=== PATIENT | male | born 1975 | race Caucasian/White ===

== ENCOUNTER 2020-06-07 10:32 | Outpatient (REF) | payer OTHER, SELFPAY | END 2020-06-07 10:33 | disposition home or self-care (01) | LOC: HO.LAB 10:32 | PROVIDERS: Visit Provider Hospitalist | DX: Z13.89 Encounter for screening for other disorder (principal) ==

== ENCOUNTER 2020-06-13 16:13 | Outpatient (REF) | payer SELFPAY ==
[2020-06-13 16:50] LABS: Cholesterol 181 mg/dL
[2020-06-13 17:11] LABS: SARS COV2 IgG Negative (Negative)
== END 2020-06-13 16:14 | disposition home or self-care (01) ==
LOC: HO.LNC 16:13
PROVIDERS: Visit Provider Pathology Anatomic Pathology & Clinical Pathology
DX: Z20.828 Contact with and (suspected) exposure to other viral communicable diseases (principal); E78.00 Pure hypercholesterolemia, unspecified
CPT/HCPCS: 82465; 86769

== ENCOUNTER 2020-06-18 15:15 | Outpatient (REF) | payer OTHER, SELFPAY ==
[2020-06-18 15:54] LABS: MANUAL DIFF FLAG NO
[2020-06-18 15:57] LABS: Basophils Percent Auto 0.4 % (0-2); Eosinophils Absolute Auto 0.1 X10*3/uL (0.0-0.4); Eosinophils Percent Auto 0.9 % (0-4); Hematocrit 41.2 % (42-52); Hemoglobin 13.8 g/dl (14.0-18.0); Imm Gran Abs Auto 0.07 X10*3/uL (0.00-0.03); Imm Gran Pct Auto 0.8 % (0.0-0.4); Lymphocytes Percent Auto 23.3 % (20-40); Mean Corpuscular HGB Conc 33.5 g/dl (31.0-36.0); Mean Corpuscular Hemoglobin 28.4 pg (27.0-33.0); Mean Corpuscular Volume 84.8 fL (80-98); Mean Platelet Volume 9.5 fL (9.4-12.4); Monocytes Absolute Auto 0.9 X10*3/uL (0.1-1.2); Monocytes Percent Auto 10.9 % (2-11); Neutrophils Absolute Auto 5.4 X10*3/uL (2.0-8.3); Neutrophils Percent Auto 63.7 % (45-73); Platelet Count 263 X10*3/uL (160-400); Red Blood Count 4.86 X10*6/uL (4.60-5.80); Red Cell Distribution Width 13.7 % (11.0-16.0); White Blood Count 8.5 X10*3/uL (4.8-10.8)
[2020-06-18 16:22] LABS: Alanine Aminotransferase 37 U/L (0-40); Albumin Level 4.8 g/dL (3.5-5.0); Alkaline Phosphatase 47 U/L (39-117); Anion Gap 14 (12-20); Aspartate Amino Transferase 43 U/L (5-37); Bilirubin Total 0.4 mg/dL (0.0-1.0); Blood Urea Nitrogen 12 mg/dL (9-16); Carbon Dioxide 27 mmol/L (22-29); Chloride 100 mmol/L (96-108); Cholesterol 201 mg/dL; Estimated Glomerular Filt Rate > 60; Glucose Fasting 90 mg/dL (60-99); HDL Cholesterol 42 mg/dL; LDL Cholesterol Calculated 127 mg/dl; Potassium 4.1 mmol/l (3.3-5.1); Rheumatoid Factor < 15.0 IU/mL (<15.0); Sodium 137 mmol/L (135-145); Total Protein 7.4 g/dL (6.5-8.0); Triglycerides 161 mg/dL
[2020-06-18 16:43] LABS: TSH reflex Free T4 1.85 mIU/mL (0.32-4.0)
[2020-06-18 16:49] LABS: Erythrocyte Sedimentation Rate 2 MM/HR (0-15)
[2020-06-20 12:03] LABS: Cyclic Citrullinated Peptide <16 UNITS
[2020-06-20 14:28] LABS: Anti Nuclear Antibody Screen NEGATIVE (NEGATIVE)
== END 2020-06-18 15:16 | disposition home or self-care (01) ==
LOC: HO.LAB 15:15
PROVIDERS: PCP Physician Assistant; Visit Provider Physician Assistant
DX: M25.50 Pain in unspecified joint (principal); I10 Essential (primary) hypertension
CPT/HCPCS: 36415; 80053; 80061; 84443; 85025; 85652; 86038; 86039; 86200; 86431

== ENCOUNTER → 2020-08-14 15:48 | Outpatient (BNVA) | payer OTHER, SELFPAY | PROVIDERS: PCP Physician Assistant; Visit Provider Student in an Organized Health Care Education/Training Program ==

== ENCOUNTER 2020-08-22 15:29 | Outpatient (REF) | payer OTHER, SELFPAY ==
[2020-08-22 15:57] LABS: Hematocrit 41.9 % (42-52); Hemoglobin 13.4 g/dl (14.0-18.0)
[2020-08-22 16:20] LABS: Cholesterol 188 mg/dL; HDL Cholesterol 38 mg/dL; LDL Cholesterol Calculated 121 mg/dl; Triglycerides 147 mg/dL
[2020-08-22 16:41] LABS: Prostate Specific Antigen 1.01 ng/mL (<0.05-4.0)
[2020-08-23 12:32] LABS: Sex Hormone Binding Globulin 19 nmol/L (10-50)
[2020-08-28 04:07] LABS: Testosterone-Albumin 4.6 g/dL (3.6-5.1); Testosterone-Free 128.1 pg/mL (46.0-224.0); Testosterone-SHBG 19 nmol/L (10-50); Testosterone-Total 606 ng/dL (250-1100)
[2020-08-28 08:47] LABS: Testosterone, Free 110.7 pg/mL (35.0-155.0); Testosterone, Total 562 ng/dL (250-1100)
[2020-08-28 23:02] LABS: Estrogen 262.2 pg/mL (60-190)
== END 2020-08-22 15:30 | disposition home or self-care (01) ==
LOC: HO.LAB 15:29
PROVIDERS: PCP Physician Assistant; Visit Provider Internal Medicine Endocrinology, Diabetes & Metabolism
DX: E29.1 Testicular hypofunction (principal); Z12.5 Encounter for screening for malignant neoplasm of prostate
CPT/HCPCS: 36415; 80061; 82672; 84153; 84270; 84402; 84403; 85014; 85018

== ENCOUNTER 2020-08-26 10:00 | Outpatient (REF) | payer OTHER, SELFPAY ==
[2020-08-26 10:15] LABS: Hematocrit 43.6 % (42-52); Mean Corpuscular HGB Conc 32.1 g/dl (31.0-36.0); Mean Corpuscular Hemoglobin 27.4 pg (27.0-33.0); Mean Corpuscular Volume 85.3 fL (80-98); Mean Platelet Volume 8.9 fL (9.4-12.4); Platelet Count 251 X10*3/uL (160-400); Red Blood Count 5.11 X10*6/uL (4.60-5.80); Red Cell Distribution Width 13.7 % (11.0-16.0); White Blood Count 6.6 X10*3/uL (4.8-10.8)
[2020-08-26 10:40] LABS: Cholesterol 200 mg/dL; HDL Cholesterol 38 mg/dL; LDL Cholesterol Calculated 130 mg/dl; Triglycerides 160 mg/dL
[2020-08-26 11:02] LABS: Vitamin D 25-OH Total 26.2 ng/mL (>30)
[2020-08-26 11:13] LABS: Folate 18.5 ng/mL (> or = 4.0); Vitamin B12 682 pg/mL (200-900)
== END 2020-08-26 10:01 | disposition home or self-care (01) ==
LOC: HO.LAB 10:00
PROVIDERS: PCP Physician Assistant; Visit Provider Physician Assistant
DX: I10 Essential (primary) hypertension (principal); M25.50 Pain in unspecified joint; E78.5 Hyperlipidemia, unspecified; R53.83 Other fatigue
CPT/HCPCS: 36415; 80061; 82306; 82607; 82746; 85027

== ENCOUNTER → 2020-10-01 14:52 | Outpatient (BNVA) | payer OTHER, SELFPAY | PROVIDERS: PCP Physician Assistant; Visit Provider Internal Medicine Endocrinology, Diabetes & Metabolism ==

== ENCOUNTER → 2020-12-18 10:26 | Outpatient (BNVA) | payer OTHER, SELFPAY | PROVIDERS: PCP Physician Assistant; Visit Provider Physician Assistant | DX: S16.1XXA Strain of muscle, fascia and tendon at neck level, initial encounter (principal); X50.0XXA Overexertion from strenuous movement or load, initial encounter | CPT/HCPCS: 99203 ==

== ENCOUNTER → 2020-12-23 09:21 | Outpatient (BNVA) | payer OTHER, SELFPAY | PROVIDERS: PCP Physician Assistant; Visit Provider Physician Assistant | DX: S16.1XXA Strain of muscle, fascia and tendon at neck level, initial encounter (principal); X50.3XXA Overexertion from repetitive movements, initial encounter | CPT/HCPCS: 99213 ==

== ENCOUNTER 2021-01-06 09:06 | Outpatient (REF) | payer OTHER, SELFPAY ==
[2021-01-06 09:42] LABS: Hematocrit 47.2 % (42-52); Hemoglobin 15.3 g/dl (14.0-18.0); Mean Corpuscular HGB Conc 32.4 g/dl (31.0-36.0); Mean Corpuscular Hemoglobin 27.9 pg (27.0-33.0); Mean Corpuscular Volume 86.1 fL (80-98); Mean Platelet Volume 9.2 fL (9.4-12.4); Platelet Count 264 X10*3/uL (160-400); Red Blood Count 5.48 X10*6/uL (4.60-5.80); Red Cell Distribution Width 14.7 % (11.0-16.0)
[2021-01-06 10:15] LABS: Anion Gap 11 (12-20); Blood Urea Nitrogen 15 mg/dL (9-16); Carbon Dioxide 28 mmol/L (22-29); Chloride 105 mmol/L (96-108); Estimated Glomerular Filt Rate > 60; Potassium 4.7 mmol/L (3.3-5.1); Sodium 139 mmol/L (135-145)
[2021-01-06 10:16] LABS: Alanine Aminotransferase 28 U/L (0-40); Albumin Level 4.9 g/dL (3.5-5.0); Alkaline Phosphatase 52 U/L (39-117); Aspartate Amino Transferase 29 U/L (5-37); Bilirubin Total 0.7 mg/dL (0.0-1.0); Calcium 9.6 mg/dL (8.4-10.2); Cholesterol 223 mg/dL; Glucose Fasting 97 mg/dL (60-99); HDL Cholesterol 43 mg/dL; LDL Cholesterol Calculated 145 mg/dl; Total Protein 7.4 g/dL (6.5-8.0); Triglycerides 177 mg/dL
[2021-01-06 10:23] LABS: TSH reflex Free T4 1.86 uIU/mL (0.32-4.0); Vitamin D 25-OH Total 34.8 ng/mL (>30)
[2021-01-06 12:33] LABS: PSA,Total (Free>4and<10) 1.12 ng/mL (0.00-4.00)
[2021-01-07 21:26] LABS: Sex Hormone Binding Globulin 23 nmol/L (10-50)
[2021-01-09 23:21] LABS: Estradiol Ultra Sensitive 52 pg/mL (< OR = 29)
[2021-01-10 17:42] LABS: Testosterone-Albumin 4.7 g/dL (3.6-5.1); Testosterone-Bioavailable 312.7 ng/dL (110.0-575.0); Testosterone-Free 145.9 pg/mL (46.0-224.0); Testosterone-SHBG 22 nmol/L (10-50); Testosterone-Total 739 ng/dL (250-1100)
== END 2021-01-06 09:07 | disposition home or self-care (01) ==
LOC: HO.LAB 09:06
PROVIDERS: Absent Provider Internal Medicine Endocrinology, Diabetes & Metabolism; PCP Physician Assistant; Visit Provider Physician Assistant
DX: E78.5 Hyperlipidemia, unspecified (principal); I10 Essential (primary) hypertension; R53.82 Chronic fatigue, unspecified; E29.1 Testicular hypofunction
CPT/HCPCS: 36415; 80053; 80061; 82306; 82670; 84153; 84270; 84402; 84403; 84443; 85027

== ENCOUNTER → 2021-01-14 14:46 | Outpatient (BNVA) | payer OTHER, SELFPAY | PROVIDERS: PCP Physician Assistant; Visit Provider Internal Medicine Endocrinology, Diabetes & Metabolism ==

== ENCOUNTER 2021-04-10 15:16 | Outpatient (REF) | payer OTHER, SELFPAY ==
[2021-04-10 15:51] LABS: Hematocrit 43.3 % (42-52); Hemoglobin 14.5 g/dl (14.0-18.0)
[2021-04-10 16:13] LABS: Cholesterol 198 mg/dL; HDL Cholesterol 34 mg/dL; LDL Cholesterol Calculated 105 mg/dl; Triglycerides 297 mg/dL
[2021-04-10 16:33] LABS: Prostate Specific Antigen 0.84 ng/mL (<0.05-4.0)
[2021-04-12 04:32] LABS: LDL Cholesterol Direct 129 mg/dL (<100)
[2021-04-12 05:21] LABS: Sex Hormone Binding Globulin 19 nmol/L (10-50)
[2021-04-14 13:27] LABS: Follicle Stimulating Hormone <0.7 mIU/mL (1.6-8.0); Lutenizing Hormone <0.2 mIU/mL (1.5-9.3); Prolactin 9.6 ng/mL (2.0-18.0)
[2021-04-15 21:36] LABS: Testosterone, Free 105.7 pg/mL (35.0-155.0); Testosterone, Total 531 ng/dL (250-1100)
== END 2021-04-10 15:17 | disposition home or self-care (01) ==
LOC: HO.LAB 15:16
PROVIDERS: PCP Physician Assistant; Visit Provider Internal Medicine
DX: E29.1 Testicular hypofunction (principal); Z12.5 Encounter for screening for malignant neoplasm of prostate
CPT/HCPCS: 36415; 80061; 83001; 83002; 83721; 84146; 84153; 84270; 84402; 84403; 85014; 85018

== ENCOUNTER 2021-05-07 15:09 | Outpatient (REF) | payer OTHER, SELFPAY ==
[2021-05-07 16:06] LABS: Hematocrit 43.8 % (42-52); Hemoglobin 14.7 g/dl (14.0-18.0)
[2021-05-07 16:32] LABS: Cholesterol 132 mg/dL; HDL Cholesterol 31 mg/dL; LDL Cholesterol Calculated 56 mg/dl; Triglycerides 226 mg/dL
[2021-05-09 17:45] LABS: Sex Hormone Binding Globulin 20 nmol/L (10-50)
[2021-05-12 00:21] LABS: Estradiol Ultra Sensitive 26 pg/mL (< OR = 29)
[2021-05-12 14:27] LABS: Testosterone, Free 125.1 pg/mL (35.0-155.0); Testosterone, Total 579 ng/dL (250-1100)
[2021-05-12 22:26] LABS: Estrogen 174.4 pg/mL (60-190)
[2021-05-13 16:06] LABS: Testosterone-Albumin 4.7 g/dL (3.6-5.1); Testosterone-Free 109.6 pg/mL (46.0-224.0); Testosterone-SHBG 18 nmol/L (10-50); Testosterone-Total 521 ng/dL (250-1100)
== END 2021-05-07 15:10 | disposition home or self-care (01) ==
LOC: HO.LAB 15:09
PROVIDERS: Internal Medicine Endocrinology, Diabetes & Metabolism; PCP Physician Assistant; Visit Provider Internal Medicine
DX: E29.1 Testicular hypofunction (principal)
CPT/HCPCS: 36415; 80061; 82670; 82672; 84153; 84270; 84402; 84403; 85014; 85018

== ENCOUNTER → 2021-05-26 14:38 | Outpatient (BNVA) | payer OTHER, SELFPAY | PROVIDERS: PCP Physician Assistant; Visit Provider Internal Medicine ==

== ENCOUNTER → 2021-08-18 15:36 | Outpatient (BNVA) | payer OTHER, SELFPAY | PROVIDERS: PCP Physician Assistant; Visit Provider Nurse Practitioner Family ==

== ENCOUNTER 2021-11-15 07:26 | Outpatient (REF) | payer OTHER, SELFPAY ==
[2021-11-15 08:23] LABS: Estimated Average Glucose 111 mg/dL; Hemoglobin A1C 151.7735 umol/L; Hemoglobin A1c % 5.5 %
[2021-11-15 08:36] LABS: Alanine Aminotransferase 21 U/L (0-40); Albumin Level 4.5 g/dL (3.5-5.0); Alkaline Phosphatase 47 U/L (39-117); Anion Gap 14 (12-20); Aspartate Amino Transferase 25 U/L (5-37); Bilirubin Total 0.6 mg/dL (0.0-1.0); Blood Urea Nitrogen 16 mg/dL (9-16); Calcium 9.4 mg/dL (8.4-10.2); Carbon Dioxide 28 mmol/L (22-29); Chloride 103 mmol/L (96-108); Cholesterol 157 mg/dL; Estimated Glomerular Filt Rate 59; Glucose Fasting 97 mg/dL (60-99); HDL Cholesterol 31 mg/dL; LDL Cholesterol Calculated 102 mg/dl; Potassium 4.6 mmol/L (3.3-5.1); Sodium 140 mmol/L (135-145); Total Protein 7.2 g/dL (6.5-8.0); Triglycerides 120 mg/dL
[2021-11-15 08:58] LABS: TSH reflex Free T4 1.86 uIU/mL (0.32-4.0)
[2021-11-17 18:41] LABS: Lyme Abs Screen <0.90 index
== END 2021-11-15 07:27 | disposition home or self-care (01) ==
LOC: HO.LAB 07:26
PROVIDERS: PCP Physician Assistant; Visit Provider Physician Assistant
DX: E78.5 Hyperlipidemia, unspecified (principal); I10 Essential (primary) hypertension; R53.82 Chronic fatigue, unspecified
CPT/HCPCS: 36415; 80053; 80061; 83036; 84443; 86617; 86618

== ENCOUNTER → 2021-11-17 15:47 | Outpatient (BNVA) | payer OTHER, SELFPAY | PROVIDERS: PCP Physician Assistant; Visit Provider Nurse Practitioner Family | DX: G47.33 Obstructive sleep apnea (adult) (pediatric) (principal) ==

== ENCOUNTER 2022-02-05 15:14 | Outpatient (REF) | payer OTHER, SELFPAY ==
[2022-02-05 16:18] LABS: Hematocrit 46.9 % (42.0-52.0); Hemoglobin 15.3 g/dl (14.0-18.0); Mean Corpuscular HGB Conc 32.6 g/dl (31.0-36.0); Mean Corpuscular Hemoglobin 28.3 pg (27.0-33.0); Mean Corpuscular Volume 86.7 fL (80.0-98.0); Mean Platelet Volume 9.3 fL (9.4-12.4); Platelet Count 272 X10*3/uL (160-400); Red Blood Count 5.41 X10*6/uL (4.60-5.80); Red Cell Distribution Width 13.4 % (11.0-16.0); White Blood Count 8.3 X10*3/uL (4.8-10.8)
[2022-02-05 16:39] LABS: Iron 165 mcg/dL (45-160); Percent Iron Saturation 43 % (15-50); Total Iron Binding Capacity 383 mcg/dL (228-428); Unsaturated Iron Binding 218 ug/dL
[2022-02-05 17:00] LABS: Ferritin 46 ng/mL (20-250); Free T4 (Free Thyroxine) 1.09 ng/dL (0.71-1.85); T4 Thyroxine 7.2 ug/dL (4.5-12.0); Vitamin D 25-OH Total 36.4 ng/mL (>30)
[2022-02-05 17:18] LABS: Folate 14.3 ng/mL (> or = 4.0); Vitamin B12 > 2000 pg/mL (200-900)
[2022-02-07 01:06] LABS: DHEA Sulfate 266 mcg/dL (61-442); Prolactin 2.6 ng/mL (2.0-18.0)
[2022-02-11 13:01] LABS: Triiodothyronine T3 Reverse 24 ng/dL (8-25)
== END 2022-02-05 15:15 | disposition home or self-care (01) ==
LOC: HO.LAB 15:14
PROVIDERS: PCP Physician Assistant; Visit Provider Physician Assistant
DX: E29.1 Testicular hypofunction (principal); R53.82 Chronic fatigue, unspecified; D50.9 Iron deficiency anemia, unspecified; E53.8 Deficiency of other specified B group vitamins
CPT/HCPCS: 36415; 82306; 82607; 82627; 82728; 82746; 83540; 84146; 84436; 84439; 84482; 85027

== ENCOUNTER → 2022-06-30 09:54 | Outpatient (BNVA) | payer OTHER, SELFPAY | PROVIDERS: PCP Physician Assistant; Visit Provider Internal Medicine | DX: S61.311A Laceration without foreign body of left index finger with damage to nail, initial encounter (principal); W26.0XXA Contact with knife, initial encounter | CPT/HCPCS: 12002; 99203 ==

== ENCOUNTER → 2022-07-02 07:45 | Outpatient (BNVA) | payer OTHER, SELFPAY | PROVIDERS: PCP Physician Assistant; Visit Provider Internal Medicine | DX: S61.311A Laceration without foreign body of left index finger with damage to nail, initial encounter (principal); W26.0XXA Contact with knife, initial encounter | CPT/HCPCS: 99213 ==

== ENCOUNTER → 2022-07-09 08:02 | Outpatient (BNVA) | payer OTHER, SELFPAY | PROVIDERS: PCP Physician Assistant; Visit Provider Internal Medicine | DX: S61.311A Laceration without foreign body of left index finger with damage to nail, initial encounter (principal); W26.0XXA Contact with knife, initial encounter | CPT/HCPCS: 99212; 99213 ==

== ENCOUNTER → 2022-07-20 07:50 | Outpatient (BNVA) | payer OTHER, SELFPAY | PROVIDERS: PCP Physician Assistant; Visit Provider Internal Medicine | DX: S61.311D Laceration without foreign body of left index finger with damage to nail, subsequent encounter (principal); W26.0XXD Contact with knife, subsequent encounter | CPT/HCPCS: 99213 ==

== ENCOUNTER → 2022-08-28 07:48 | Outpatient (BNVA) | payer OTHER, SELFPAY | PROVIDERS: PCP Physician Assistant; Visit Provider Nurse Practitioner Family | DX: Z13.89 Encounter for screening for other disorder (principal) ==

== ENCOUNTER 2022-09-19 09:26 | Outpatient (REF) | payer OTHER, SELFPAY ==
--- NOTE | ~2022-09-19 | XR_ITS ---
EXAMINATION: XR KNEE AP STANDING CLINICAL INFORMATION: 47-year-old male patient with pain in the right knee. COMPARISON: X-rays of the left knee on 11/07/2016. (Normal). TECHNIQUE: AP and lateral bilateral standing views of the knees was obtained. FINDINGS: Bones and soft tissues are normal. No fracture or joint effusion. Alignment is anatomic. Joint spaces are well maintained. No abnormal soft tissue calcification. XR/XR knee standing BI IMPRESSION: Normal knees.
[2022-09-19 11:27] LABS: Hematocrit 50.9 % (42.0-52.0); Hemoglobin 16.6 g/dl (14.0-18.0); Mean Corpuscular HGB Conc 32.6 g/dl (31.0-36.0); Mean Corpuscular Hemoglobin 28.3 pg (27.0-33.0); Mean Corpuscular Volume 86.7 fL (80.0-98.0); Mean Platelet Volume 9.6 fL (9.4-12.4); Platelet Count 262 X10*3/uL (160-400); Red Blood Count 5.87 X10*6/uL (4.60-5.80); Red Cell Distribution Width 13.5 % (11.0-16.0); White Blood Count 7.4 X10*3/uL (4.8-10.8)
[2022-09-19 11:43] LABS: Alanine Aminotransferase 26 U/L (0-40); Albumin Level 4.6 g/dL (3.5-5.0); Alkaline Phosphatase 50 U/L (39-117); Anion Gap 12 (12-20); Aspartate Amino Transferase 30 U/L (5-37); Bilirubin Total 1.3 mg/dL (0.0-1.0); Blood Urea Nitrogen 17 mg/dL (9-16); Calcium 9.4 mg/dL (8.4-10.2); Carbon Dioxide 31 mmol/L (22-29); Chloride 101 mmol/L (96-108); Cholesterol 164 mg/dL; Estimated Glomerular Filt Rate > 60; Glucose Fasting 101 mg/dL (60-99); HDL Cholesterol 34 mg/dL; LDL Cholesterol Calculated 107 mg/dl; Potassium 4.9 mmol/L (3.3-5.1); Sodium 139 mmol/L (135-145); Total Protein 7.1 g/dL (6.5-8.0); Triglycerides 116 mg/dL
[2022-09-19 12:00] LABS: Creatinine Urine 88.45 mg/dL; Microalbum/Creatinine Ratio Ur 30.5 ug/mg cr
[2022-09-19 12:02] LABS: TSH reflex Free T4 1.89 uIU/mL (0.32-4.0)
== END 2022-09-19 09:27 | disposition home or self-care (01) ==
LOC: HO.HMGCLDS 09:26
PROVIDERS: PCP Physician Assistant; Visit Provider Physician Assistant
DX: M25.561 Pain in right knee (principal); M25.562 Pain in left knee; I10 Essential (primary) hypertension; E78.5 Hyperlipidemia, unspecified; G89.29 Other chronic pain
CPT/HCPCS: 36415; 73565; 80053; 80061; 82043; 84443; 85027

== ENCOUNTER 2022-10-07 07:36 | Outpatient (REF) | payer OTHER, SELFPAY ==
--- NOTE | ~2022-10-07 | XR_ITS ---
EXAMINATION: XR KNEE, RIGHT XR KNEE, LEFT CLINICAL INFORMATION: M25.561 - Pain in right knee. M25.562 - Pain in left knee. COMPARISON: Radiographs bilateral knees 09/19/2022, left knee 03/09/2017. TECHNIQUE: Each knee is imaged in axial patella view. There is one view on each side. FINDINGS: Right: No lateralization or tilting of patella. No patellofemoral erosive change or visible chondrocalcinosis. There is borderline lateral patellar spur. Left: No lateralization or tilting of patella. No patellofemoral erosive change or visible chondrocalcinosis. There is borderline lateral patellar spur. XR/XR knee RT 1V IMPRESSION: -No joint narrowing or erosive change bilateral patellofemoral joints. -No lateralization or tilting bilateral patella.
--- NOTE | ~2022-10-07 | XR_ITS ---
EXAMINATION: XR KNEE, RIGHT XR KNEE, LEFT CLINICAL INFORMATION: M25.561 - Pain in right knee. M25.562 - Pain in left knee. COMPARISON: Radiographs bilateral knees 09/19/2022, left knee 03/09/2017. TECHNIQUE: Each knee is imaged in axial patella view. There is one view on each side. FINDINGS: Right: No lateralization or tilting of patella. No patellofemoral erosive change or visible chondrocalcinosis. There is borderline lateral patellar spur. Left: No lateralization or tilting of patella. No patellofemoral erosive change or visible chondrocalcinosis. There is borderline lateral patellar spur. XR/XR knee LT 1V IMPRESSION: -No joint narrowing or erosive change bilateral patellofemoral joints. -No lateralization or tilting bilateral patella.
== END 2022-10-07 07:37 | disposition home or self-care (01) ==
LOC: HO.HOSX 07:36
PROVIDERS: Visit Provider Physician Assistant
DX: M17.0 Bilateral primary osteoarthritis of knee (principal)
CPT/HCPCS: 20610; 73560; J1020

== ENCOUNTER 2022-11-02 16:39 | Emergency (ER) | payer OTHER, SELFPAY ==
--- NOTE | ~2022-11-02 | CT_ITS ---
EXAMINATION: CT HEAD WITHOUT CONTRAST CLINICAL INFORMATION: Headache, blurry vision COMPARISON: Correlation MRI brain 07/26/2019 TECHNIQUE: Contiguous axial imaging was performed from the skull base to vertex without intravenous administration of contrast. This CT examination was performed using dose optimization techniques as appropriate, variously including the following: *Automated exposure control *Adjustment of mA and/or kV according to patient size (this includes techniques or standardized protocols for targeted exams where dose is matched to indication/reason for exam; i.e. extremities or head) *Use of iterative reconstruction technique DLP: 648 mGy-cm FINDINGS: There is no evidence of acute intracranial hemorrhage or edematous territorial infarction. No abnormal mass effect or midline shift is seen. Doe to white matter differentiation is well preserved. No extra-axial fluid collections are identified. Bilateral basal ganglia mineralization. The ventricles are normal in size. No abnormal attenuation in the brain parenchyma. No acute calvarial fracture.. Bilateral maxillary sinus mucosal thickening/small fluid. Mild ethmoid sinus mucosal thickening. Remainder of the paranasal sinuses and mastoid air cells are well-aerated. CT/CT head/brain wo IV con IMPRESSION: No CT evidence of acute intracranial hemorrhage or edematous territorial infarction. Etiology of the patient's symptoms has not been determined by noncontrast CT. Additional imaging for further evaluation can be obtained, as clinically warranted. Sinus disease as above.
[2022-11-02 16:46] VITALS: BP 149/79; PULSE 104; RESP 18; TEMP 36.9; O2SAT 95; BMI 29.5
--- NOTE | 2022-11-02 16:46 | ED.GENADULT ---
HPI - General Adult General Chief complaint: Eye Problems <JON Marsh - Last Filed: 11/02/22 16:49> Stated complaint: blurry vision,not feeling well <JON Marsh - Last Filed: 11/02/22 16:49> Time Seen by Provider: 11/02/22 21:20 <JON Marsh - Last Filed: 11/02/22 16:49> Source: patient <Odell Chen MD - Last Filed: 11/02/22 21:37> Limitations: no limitations <Odell Chen MD - Last Filed: 11/02/22 21:37> History of Present Illness HPI narrative: patient has been feeling like he has sinus congestion and ear pain but now says he has blurry vision yesterday and today. patient taking tylenol cold and flu with no relief. Denies having diabetes. <Odell Chen MD - Last Filed: 11/02/22 21:37> Onset (ago): week(s) <Odell Chen MD - Last Filed: 11/02/22 21:37> Location: face and eyes <Odell Chen MD - Last Filed: 11/02/22 21:37> Severity: mild <Odell Chen MD - Last Filed: 11/02/22 21:37> Associated symptoms: cough, headaches and other (congestion) <Odell Chen MD - Last Filed: 11/02/22 21:37> Related Data Home medications: Home Medications Medication Instructions Recorded Confirmed ibuprofen 800 mg tablet 800 mg PO TID PRN 05/20/20 10/07/22 Previous Rx's Medication Instructions Recorded blood pressure test kit-large #1 ea 05/20/20 safety needles 25 gauge x 1 07/13 #10 ea 01/15/21 (BD Eclipse Luer-Santino) testosterone cypionate 100 mg/mL 40 mg (0.4 mL) IM QWEEK 30 days #2 05/26/21 intramuscular oil mL azelaic acid 15 % topical gel 1 appl topical BID 30 days #50 11/27/21 grams atorvastatin 40 mg tablet 40 mg PO DAILY 30 days #30 tabs 04/06/22 bisacodyl 5 mg tablet,delayed 10 mg PO ONCE colonoscopy prep 1 04/07/22 release (Dulcolax (bisacodyl)) day #2 tabs polyethylene glycol 3350 17 238 g PO ONCE 1 day #238 grams 04/07/22 gram/dose oral powder (Miralax) cholecalciferol (vitamin D3) 50 50 mcg PO DAILY 90 days #90 caps 05/18/22 mcg (2,000 unit) capsule sildenafil 100 mg tablet 100 mg PO DAILY PRN sexual 05/18/22 activity 4 days #4 tabs diclofenac sodium 75 mg 75 mg PO BID 30 days #60 tabs 05/19/22 tablet,delayed release hydrochlorothiazide 25 mg tablet 25 mg PO QAM #90 tabs 06/17/22 magnesium oxide 400 mg (241.3 mg 400 mg PO BEDTIME 30 days #30 tabs 07/07/22 magnesium) tablet losartan 100 mg tablet 100 mg PO DAILY #90 tabs 08/03/22 dextroamphetamine-amphetamine 20 20 mg PO DAILY 28 days #28 tabs 08/20/22 mg tablet (Adderall) oxycodone 5 mg tablet 5 mg PO BID pain 4 days #8 tabs 09/17/22 clonazepam 1 mg tablet 1 mg PO BID 30 days #60 tabs 09/22/22 mirtazapine 7.5 mg tablet 7.5 mg PO BEDTIME 30 days #30 tabs 09/23/22 zolpidem 12.5 mg tablet,extended 12.5 mg PO BEDTIME PRN insomnia 30 09/24/22 release,multiphase days #30 tabs leg brace (Knee Support Brace) #1 ea 10/07/22 modafinil 200 mg tablet 200 mg PO QAM 30 days #30 tabs 10/09/22 fluticasone propionate 50 1 spray intranasal BID #16 grams 11/02/22 mcg/actuation nasal spray,suspension (Flonase Allergy Relief) <JON Marsh - Last Filed: 11/02/22 16:49> Allergies/adverse reactions: Allergies Allergy/AdvReac Type Severity Reaction Status Date / Time RY Inhibitors Allergy Unknown cough Verified 11/02/22 16:48 propranolol Allergy Unknown Unknown Verified 11/02/22 16:48 amlodipine AdvReac Unknown flushing Verified 11/02/22 16:48 bupropion [Wellbutrin] AdvReac Unknown headaches, Verified 11/02/22 16:48 SOB and wheezing ??? Increased anxiety <JON Marsh - Last Filed: 11/02/22 16:49> Review of Systems Review of Systems: Yes all other systems are reviewed and are negative <Odell Chen MD - Last Filed: 11/02/22 21:37> Constitutional: Constitutional: Reports headache(s) <Odell Chen MD - Last Filed: 11/02/22 21:37> Eyes: Comments: blurry vision <Odell Chen MD - Last Filed: 11/02/22 21:37> ENT: Reports headache(s) <Odell Chen MD - Last Filed: 11/02/22 21:37> Comments: congestion <Odell Chen MD - Last Filed: 11/02/22 21:37> Neurologic: Reports headache(s) and Denies Sensory deficit (Neuro) <Odell Chen MD - Last Filed: 11/02/22 21:37> FOR[facility]LY [facility], [facility] Past Medical History Medical History: Medical History Hypertension Hypogonadism male <JON Marsh - Last Filed: 11/02/22 16:49> Surgical History: Surgical History History of vasectomy <JON Marsh - Last Filed: 11/02/22 16:49> Family History Family History: Family History Father Medical history unknown Mother Hypertension <JON Marsh - Last Filed: 11/02/22 16:49> Social History Social History: Social History Housing: House Alcohol intake: never Patient Tobacco Use Status: Former Tobacco user Quit Date: over 10 years ago e-Cigarette/Vaping Use: Never Used Second Hand Smoke Exposure: No Advance Directives: No Advance Directives Information Provided: No service: No Current occupational status: employed 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 Cognitive needs: No Hearing needs: No Vision needs: No <JON Marsh - Last Filed: 11/02/22 16:49> Physical Exam ED Vital Signs: Vital Signs - 24 hr 11/02/22 16:46 Temperature 98.5 F Pulse Rate 104 H Respiratory Rate 18 Blood Pressure 149/79 H Pulse Oximetry 95 Oxygen Delivery Method Room Air BMI result Body Mass Index 29.5 <JON Marsh - Last Filed: 11/02/22 16:49> Vital Signs - 24 hr 11/02/22 16:46 Temperature 98.5 F Pulse Rate 104 H Respiratory Rate 18 Blood Pressure 149/79 H Pulse Oximetry 95 Oxygen Delivery Method Room Air BMI result Body Mass Index 29.5 <Odell Chen MD - Last Filed: 11/02/22 21:37> Const General: healthy appearing <Odell Chen MD - Last Filed: 11/02/22 21:37> Nutritional Appearance: average body habitus <Odell Chen MD - Last Filed: 11/02/22 21:37> Orientation/consciousness: oriented to person and patient oriented x3 <Odell Chen MD - Last Filed: 11/02/22 21:37> Limitations: no limitations <Odell Chen MD - Last Filed: 11/02/22 21:37> HENMT Other: nasal congestion, TMS congestion no bulging or erythema <Odell Chen MD - Last Filed: 11/02/22 21:37> Head: Yes normal to inspection <Odell Chen MD - Last Filed: 11/02/22 21:37> General nose exam: Normal external nose present <Odell Chen MD - Last Filed: 11/02/22 21:37> Mouth: Normal oral and palatal mucosa present and oropharynx normal <Odell Chen MD - Last Filed: 11/02/22 21:37> Throat: Yes posterior oropharynx normal <Odell Chen MD - Last Filed: 11/02/22 21:37> Eyes Other: optic disks normal <Odell Chen MD - Last Filed: 11/02/22 21:37> General: appearance normal, both eyes and all related structures <Odell Chen MD - Last Filed: 11/02/22 21:37> Neck Neck: Yes normal visual inspection <Odell Chen MD - Last Filed: 11/02/22 21:37> Chest Chest palpation & inspection: normal inspection of the chest <Odell Chen MD - Last Filed: 11/02/22 21:37> Resp Auscultation: clear to auscultation bilaterally <Odell Chen MD - Last Filed: 11/02/22 21:37> Cardio Jugular venous distension: no JVD <Odell Chen MD - Last Filed: 11/02/22 21:37> Rate: regular rate <Odell Chen MD - Last Filed: 11/02/22 21:37> Rhythm: regular rhythm <Odell Chen MD - Last Filed: 11/02/22 21:37> Heart sounds: S1 normal heart sound present and S2 normal heart sound present <Odell Chen MD - Last Filed: 11/02/22 21:37> GI Inspection: Yes normal to inspection <Odell Chen MD - Last Filed: 11/02/22 21:37> Palpation (GI): Soft to palpation, nontender and No hepatosplenomegaly present <Odell Chen MD - Last Filed: 11/02/22 21:37> Auscultation: normal bowel sounds <Odell Chen MD - Last Filed: 11/02/22 21:37> General: Yes no CVA tenderness <Odell Chen MD - Last Filed: 11/02/22 21:37> Back/Spine/Pelvis Back: no CVA tenderness <Odell Chen MD - Last Filed: 11/02/22 21:37> Skin General skin exam: no rashes or lesions noted <Odell Chen MD - Last Filed: 11/02/22 21:37> Neuro General: oriented to person and patient oriented x3 <Odell Chen MD - Last Filed: 11/02/22 21:37> Cranial nerves: Yes CN's II-XII intact bilaterally <Odell Chen MD - Last Filed: 11/02/22 21:37> Motor exam (neuro): 5/5 motor strength present throughout <Odell Chen MD - Last Filed: 11/02/22 21:37> Sensory Exam: No Sensory deficit (Neuro) <Odell Chen MD - Last Filed: 11/02/22 21:37> Extrem General: Yes normal to inspection <Odell Chen MD - Last Filed: 11/02/22 21:37> Psych Appearance: grossly normal <Odell Chen MD - Last Filed: 11/02/22 21:37> Course Course Course Narrative: RME: 47yo M w/PMHx ALVAREZ, HTN, HLD, MDD, PREETI c/o generally feeling unwell, CABA and intermittent blurry vision x few days. Denies taking AC, head injury/fall, N/V, weakness Ambulating w/steady gait, +congestion EKG, Labs, COVID/FLU, Head CT Full HPI, ROS and PE to be performed by primary ED provider. <JON Marsh - Last Filed: 11/02/22 16:49> Reevaluation(s) Reevaluation #1: Patient with ethmoid and maxillary sinusitis will treat with flonase <Odell Chen MD - Last Filed: 11/02/22 21:37> Time: 21:32 <Odell Chen MD - Last Filed: 11/02/22 21:37> Medical Decision Making Differential Diagnosis Differential Diagnoses: The differential diagnosis associated with the presentation includes (HTN, diabetes, cerebral mass, sinusitis, covid, influenza were all considered) <Odell Chen MD - Last Filed: 11/02/22 21:37> Admission/Observation Consideration of admission/observation: Escalation of care including admission/observation considered (In this patient with blurry vision bilaterally admission was considered and larger workup undertaken) <Odell Chen MD - Last Filed: 11/02/22 21:37> Lab Data MDM Lab Attestation statement: I reviewed the patient's lab results. <Odell Chen MD - Last Filed: 11/02/22 21:37> Result Diagrams: 11/02/22 18:11 11/02/22 18:11 <JON Marsh - Last Filed: 11/02/22 16:49> Labs: Lab Results 11/02/22 11/02/22 11/02/22 Range/Units 18:11 18:11 18:11 WBC 10.5 (4.8-10.8) X10*3/uL RBC 5.49 (4.60-5.80) X10*6/uL Hgb 15.7 (14.0-18.0) g/dl Hct 47.5 (42.0-52.0) % MCV 86.5 (80.0-98.0) fL MCH 28.6 (27.0-33.0) pg MCHC 33.1 (31.0-36.0) g/dl RDW 13.9 (11.0-16.0) % Plt Count 206 (160-400) X10*3/uL MPV 8.9 L (9.4-12.4) fL Immature Gran % (Auto) 0.9 H (0.0-0.4) % Neut % (Auto) 72.7 (45-73) % Lymph % (Auto) 15.8 L (20-40) % Grady % (Auto) 9.3 (2-11) % Eos % (Auto) 0.9 (0-4) % Baso % (Auto) 0.4 (0-2) % Lymph # (Auto) 1.7 (1.2-4.9) X10*3/uL Grady # (Auto) 1.0 (0.1-1.2) X10*3/uL Eos # (Auto) 0.1 (0.0-0.4) X10*3/uL Baso # (Auto) 0.0 (0.0-0.2) X10*3/uL Abs Immat Gran (auto) 0.09 H (0.00-0.03) X10*3/uL Absolute Neuts (auto) 7.6 (2.0-8.3) x10*3/uL Absolute Nucleated RBC 0.000 (0.0-0.012) X10*3/uL Nucleated RBC % (auto) 0.0 (0.0-0.2) /100WBC PT 10.4 (10.0-13.1) SEC INR 0.9 (0.9-1.1) Sodium 141 (135-145) mmol/L Potassium 4.2 (3.3-5.1) mmol/L Chloride 100 (96-108) mmol/L Carbon Dioxide 28 (22-29) mmol/L Anion Gap 17 (12-20) BUN 18 H (9-16) mg/dL Creatinine 1.10 (0.5-1.4) mg/dL Estim Creat Clear Calc 93.4 Estimated GFR > 60 Random Glucose 110 (60-115) mg/dL Calcium 9.5 (8.4-10.2) mg/dL Magnesium 1.9 (1.6-2.6) mg/dL Total Bilirubin 0.5 (0.0-1.0) mg/dL Direct Bilirubin 0.1 (0.0-0.5) mg/dL AST 31 (5-37) U/L ALT 26 (0-40) U/L Alkaline Phosphatase 56 (39-117) U/L Total Protein 7.4 (6.5-8.0) g/dL Albumin 4.8 (3.5-5.0) g/dL COVID-19 (RAFA) (Negative) COVID-19 Clin Com Influenza Type A (VERONIKA) (Negative) Influenza Type B (VERONIKA) (Negative) Influenza A & B Note 11/02/22 11/02/22 Range/Units 18:11 18:11 WBC (4.8-10.8) X10*3/uL RBC (4.60-5.80) X10*6/uL Hgb (14.0-18.0) g/dl Hct (42.0-52.0) % MCV (80.0-98.0) fL MCH (27.0-33.0) pg MCHC (31.0-36.0) g/dl RDW (11.0-16.0) % Plt Count (160-400) X10*3/uL MPV (9.4-12.4) fL Immature Gran % (Auto) (0.0-0.4) % Neut % (Auto) (45-73) % Lymph % (Auto) (20-40) % Grady % (Auto) (2-11) % Eos % (Auto) (0-4) % Baso % (Auto) (0-2) % Lymph # (Auto) (1.2-4.9) X10*3/uL Grady # (Auto) (0.1-1.2) X10*3/uL Eos # (Auto) (0.0-0.4) X10*3/uL Baso # (Auto) (0.0-0.2) X10*3/uL Abs Immat Gran (auto) (0.00-0.03) X10*3/uL Absolute Neuts (auto) (2.0-8.3) x10*3/uL Absolute Nucleated RBC (0.0-0.012) X10*3/uL Nucleated RBC % (auto) (0.0-0.2) /100WBC PT (10.0-13.1) SEC INR (0.9-1.1) Sodium (135-145) mmol/L Potassium (3.3-5.1) mmol/L Chloride (96-108) mmol/L Carbon Dioxide (22-29) mmol/L Anion Gap (12-20) BUN (9-16) mg/dL Creatinine (0.5-1.4) mg/dL Estim Creat Clear Calc Estimated GFR Random Glucose (60-115) mg/dL Calcium (8.4-10.2) mg/dL Magnesium (1.6-2.6) mg/dL Total Bilirubin (0.0-1.0) mg/dL Direct Bilirubin (0.0-0.5) mg/dL AST (5-37) U/L ALT (0-40) U/L Alkaline Phosphatase (39-117) U/L Total Protein (6.5-8.0) g/dL Albumin (3.5-5.0) g/dL COVID-19 (RAFA) Negative (Negative) COVID-19 Clin Com See Note Influenza Type A (VERONIKA) Negative (Negative) Influenza Type B (VERONIKA) Negative (Negative) Influenza A & B Note See Note <JON Marsh - Last Filed: 11/02/22 16:49> Lab Results 11/02/22 11/02/22 11/02/22 Range/Units 18:11 18:11 18:11 WBC 10.5 (4.8-10.8) X10*3/uL RBC 5.49 (4.60-5.80) X10*6/uL Hgb 15.7 (14.0-18.0) g/dl Hct 47.5 (42.0-52.0) % MCV 86.5 (80.0-98.0) fL MCH 28.6 (27.0-33.0) pg MCHC 33.1 (31.0-36.0) g/dl RDW 13.9 (11.0-16.0) % Plt Count 206 (160-400) X10*3/uL MPV 8.9 L (9.4-12.4) fL Immature Gran % (Auto) 0.9 H (0.0-0.4) % Neut % (Auto) 72.7 (45-73) % Lymph % (Auto) 15.8 L (20-40) % Grady % (Auto) 9.3 (2-11) % Eos % (Auto) 0.9 (0-4) % Baso % (Auto) 0.4 (0-2) % Lymph # (Auto) 1.7 (1.2-4.9) X10*3/uL Grady # (Auto) 1.0 (0.1-1.2) X10*3/uL Eos # (Auto) 0.1 (0.0-0.4) X10*3/uL Baso # (Auto) 0.0 (0.0-0.2) X10*3/uL Abs Immat Gran (auto) 0.09 H (0.00-0.03) X10*3/uL Absolute Neuts (auto) 7.6 (2.0-8.3) x10*3/uL Absolute Nucleated RBC 0.000 (0.0-0.012) X10*3/uL Nucleated RBC % (auto) 0.0 (0.0-0.2) /100WBC PT 10.4 (10.0-13.1) SEC INR 0.9 (0.9-1.1) Sodium 141 (135-145) mmol/L Potassium 4.2 (3.3-5.1) mmol/L Chloride 100 (96-108) mmol/L Carbon Dioxide 28 (22-29) mmol/L Anion Gap 17 (12-20) BUN 18 H (9-16) mg/dL Creatinine 1.10 (0.5-1.4) mg/dL Estim Creat Clear Calc 93.4 Estimated GFR > 60 Random Glucose 110 (60-115) mg/dL Calcium 9.5 (8.4-10.2) mg/dL Magnesium 1.9 (1.6-2.6) mg/dL Total Bilirubin 0.5 (0.0-1.0) mg/dL Direct Bilirubin 0.1 (0.0-0.5) mg/dL AST 31 (5-37) U/L ALT 26 (0-40) U/L Alkaline Phosphatase 56 (39-117) U/L Total Protein 7.4 (6.5-8.0) g/dL Albumin 4.8 (3.5-5.0) g/dL COVID-19 (RAFA) (Negative) COVID-19 Clin Com Influenza Type A (VERONIKA) (Negative) Influenza Type B (VERONIKA) (Negative) Influenza A & B Note 11/02/22 11/02/22 Range/Units 18:11 18:11 WBC (4.8-10.8) X10*3/uL RBC (4.60-5.80) X10*6/uL Hgb (14.0-18.0) g/dl Hct (42.0-52.0) % MCV (80.0-98.0) fL MCH (27.0-33.0) pg MCHC (31.0-36.0) g/dl RDW (11.0-16.0) % Plt Count (160-400) X10*3/uL MPV (9.4-12.4) fL Immature Gran % (Auto) (0.0-0.4) % Neut % (Auto) (45-73) % Lymph % (Auto) (20-40) % Grady % (Auto) (2-11) % Eos % (Auto) (0-4) % Baso % (Auto) (0-2) % Lymph # (Auto) (1.2-4.9) X10*3/uL Grady # (Auto) (0.1-1.2) X10*3/uL Eos # (Auto) (0.0-0.4) X10*3/uL Baso # (Auto) (0.0-0.2) X10*3/uL Abs Immat Gran (auto) (0.00-0.03) X10*3/uL Absolute Neuts (auto) (2.0-8.3) x10*3/uL Absolute Nucleated RBC (0.0-0.012) X10*3/uL Nucleated RBC % (auto) (0.0-0.2) /100WBC PT (10.0-13.1) SEC INR (0.9-1.1) Sodium (135-145) mmol/L Potassium (3.3-5.1) mmol/L Chloride (96-108) mmol/L Carbon Dioxide (22-29) mmol/L Anion Gap (12-20) BUN (9-16) mg/dL Creatinine (0.5-1.4) mg/dL Estim Creat Clear Calc Estimated GFR Random Glucose (60-115) mg/dL Calcium (8.4-10.2) mg/dL Magnesium (1.6-2.6) mg/dL Total Bilirubin (0.0-1.0) mg/dL Direct Bilirubin (0.0-0.5) mg/dL AST (5-37) U/L ALT (0-40) U/L Alkaline Phosphatase (39-117) U/L Total Protein (6.5-8.0) g/dL Albumin (3.5-5.0) g/dL COVID-19 (RAFA) Negative (Negative) COVID-19 Clin Com See Note Influenza Type A (VERONIKA) Negative (Negative) Influenza Type B (VERONIKA) Negative (Negative) Influenza A & B Note See Note <Odell Chen MD - Last Filed: 11/02/22 21:37> Radiology Impression Discussion of test interpretation with radiology: I have reviewed the radiologist's reading. (head CT showed ethmoid and maxillary sinusitis) <Odell Chen MD - Last Filed: 11/02/22 21:37> Discharge Plan Discharge Clinical Impression: Sinusitis <JON Marsh - Last Filed: 11/02/22 16:49> Patient Disposition: Home, Self-Care <JON Marsh - Last Filed: 11/02/22 16:49> Instructions: Sinusitis (ED) <JON Marsh - Last Filed: 11/02/22 16:49> Prescriptions: New fluticasone propionate [Flonase Allergy Relief] 50 mcg/actuation spray,suspension 1 spray intranasal BID Qty: 16 0RF Rx Instructions: administer into each nostril No Action (DME) BD Eclipse Luer-Santino 25 gauge x 1 1/2 needle See Rx Instructions .ROUTE .MEDSUPPLY Qty: 10 4RF Rx Instructions: once a week azelaic acid 15 % gel 1 appl topical BID 30 Days Qty: 50 0RF atorvastatin 40 mg tablet 40 mg PO DAILY 30 Days Qty: 30 4RF cholecalciferol (vitamin D3) 50 mcg (2,000 unit) capsule 50 mcg PO DAILY 90 Days Qty: 90 2RF sildenafil 100 mg tablet 100 mg PO DAILY PRN (Reason: sexual activity) 4 Days Qty: 4 3RF diclofenac sodium 75 mg tablet,delayed release (DR/EC) 75 mg PO BID 30 Days Qty: 60 2RF hydrochlorothiazide 25 mg tablet 25 mg PO QAM Qty: 90 2RF magnesium oxide 400 mg (241.3 mg magnesium) tablet 400 mg PO BEDTIME 30 Days Qty: 30 11RF losartan 100 mg tablet 100 mg PO DAILY Qty: 90 2RF dextroamphetamine-amphetamine [Adderall] 20 mg tablet 20 mg PO DAILY 28 Days Qty: 28 0RF oxycodone 5 mg tablet 5 mg PO BID 4 Days Qty: 8 0RF clonazepam 1 mg tablet 1 mg PO BID 30 Days Qty: 60 1RF mirtazapine 7.5 mg tablet 7.5 mg PO BEDTIME 30 Days Qty: 30 3RF zolpidem 12.5 mg tablet,ext release multiphase 12.5 mg PO BEDTIME PRN (Reason: insomnia) 30 Days Qty: 30 3RF modafinil 200 mg tablet 200 mg PO QAM 30 Days Qty: 30 2RF ibuprofen 800 mg tablet 800 mg PO TID PRN (DME) blood pressure test kit-large Kit See Rx Instructions .ROUTE .MEDSUPPLY Qty: 1 0RF Rx Instructions: As directed testosterone cypionate 100 mg/mL oil 40 mg IM QWEEK 30 Days Qty: 2 3RF (DME) Knee Support Brace Misc See Rx Instructions .MEDSUPPLY Qty: 1 0RF Rx Instructions: Spider knee pad ( bilat knee ) bisacodyl [Dulcolax (bisacodyl)] 5 mg tablet,delayed release (DR/EC) 10 mg PO ONCE 1 Days Qty: 2 0RF Rx Instructions: Take 2 tablets by mouth at 12:00pm the day before your procedure. polyethylene glycol 3350 [Miralax] 17 gram/dose powder 238 g PO ONCE 1 Days Qty: 238 0RF Rx Instructions: Take as directed by mouth the day before your procedure. <JON Marsh - Last Filed: 11/02/22 16:49> Referrals: Sal Ferrell PA-C [Primary Care Provider] - 1 week <JON Marsh - Last Filed: 11/02/22 16:49>
[2022-11-02 18:18] LABS: MANUAL DIFF FLAG NO
[2022-11-02 18:25] LABS: INTERNATIONAL NORM RATIO 0.9 (0.9-1.1); Prothrombin Time 10.4 SEC (10.0-13.1)
[2022-11-02 18:35] LABS: Alanine Aminotransferase 26 U/L (0-40); Albumin Level 4.8 g/dL (3.5-5.0); Alkaline Phosphatase 56 U/L (39-117); Anion Gap 17 (12-20); Aspartate Amino Transferase 31 U/L (5-37); Bilirubin Direct 0.1 mg/dL (0.0-0.5); Bilirubin Total 0.5 mg/dL (0.0-1.0); Blood Urea Nitrogen 18 mg/dL (9-16); Calcium 9.5 mg/dL (8.4-10.2); Carbon Dioxide 28 mmol/L (22-29); Chloride 100 mmol/L (96-108); Creatinine Clr Calc Pharmacy 93.4; Estimated Glomerular Filt Rate > 60; Glucose Random 110 mg/dL (60-115); Magnesium 1.9 mg/dL (1.6-2.6); Potassium 4.2 mmol/L (3.3-5.1); Sodium 141 mmol/L (135-145); Total Protein 7.4 g/dL (6.5-8.0)
[2022-11-02 18:36] LABS: Basophils Percent Auto 0.4 % (0-2); COVID-19 Test Negative (Negative); Eosinophils Absolute Auto 0.1 X10*3/uL (0.0-0.4); Eosinophils Percent Auto 0.9 % (0-4); Hematocrit 47.5 % (42.0-52.0); Hemoglobin 15.7 g/dl (14.0-18.0); IDNOW Serial# 9DB6401D; IDNOW Serial# BCCEAD1C; Imm Gran Abs Auto 0.09 X10*3/uL (0.00-0.03); Imm Gran Pct Auto 0.9 % (0.0-0.4); Influenza A Negative (Negative); Influenza B2 Negative (Negative); Lymphocytes Absolute Auto 1.7 X10*3/uL (1.2-4.9); Lymphocytes Percent Auto 15.8 % (20-40); Mean Corpuscular HGB Conc 33.1 g/dl (31.0-36.0); Mean Corpuscular Hemoglobin 28.6 pg (27.0-33.0); Mean Corpuscular Volume 86.5 fL (80.0-98.0); Mean Platelet Volume 8.9 fL (9.4-12.4); Monocytes Percent Auto 9.3 % (2-11); Neutrophils Absolute Auto 7.6 x10*3/uL (2.0-8.3); Neutrophils Percent Auto 72.7 % (45-73); Platelet Count 206 X10*3/uL (160-400); Red Blood Count 5.49 X10*6/uL (4.60-5.80); Red Cell Distribution Width 13.9 % (11.0-16.0); White Blood Count 10.5 X10*3/uL (4.8-10.8)
== END 2022-11-02 21:40 | disposition home or self-care (01) ==
PROVIDERS: Physician Assistant; Emergency Provider Emergency Medicine; PCP Physician Assistant
DX: J32.8 Other chronic sinusitis (principal); Z20.822 Contact with and (suspected) exposure to COVID-19; H53.8 Other visual disturbances; I10 Essential (primary) hypertension; E78.5 Hyperlipidemia, unspecified; Z79.899 Other long term (current) drug therapy; Z79.02 Long term (current) use of antithrombotics/antiplatelets
CPT/HCPCS: 36415; 70450; 80048; 80076; 83735; 85025; 85610; 87502; 87635; 99282; 99284

== ENCOUNTER → 2022-11-27 14:59 | Outpatient (BNVA) | payer OTHER, SELFPAY | PROVIDERS: PCP Physician Assistant; Visit Provider Nurse Practitioner Family | DX: G47.33 Obstructive sleep apnea (adult) (pediatric) (principal); G47.10 Hypersomnia, unspecified; G47.30 Sleep apnea, unspecified ==

== ENCOUNTER 2023-05-10 09:53 | Outpatient (AMB) | payer OTHER, SELFPAY ==
--- NOTE | 2023-05-10 09:53 | MHC.PC.OV ---
Intake Visit Reasons: Cold Symptoms Intake Note: Took a covid test last week that came back negative. Has been sick for about 2 weeks. Allergies RY Inhibitors Allergy (Unknown, Verified 05/10/23 09:57) cough propranolol Allergy (Unknown, Verified 05/10/23 09:57) Unknown amlodipine Adverse Reaction (Unknown, Verified 05/10/23 09:57) flushing bupropion [Wellbutrin] Adverse Reaction (Unknown, Verified 05/10/23 09:57) headaches, SOB and wheezing ??? Increased anxiety Medication List - Last Reconciled 05/10/23 by Sal Ferrell PA-C acetaminophen ER (Tylenol Arthritis Pain) 650 mg PO Q12H 30 days atorvastatin 20 mg PO DAILY 90 days azelaic acid 15% 1 appl topical BID 30 days blood pressure test kit-large As directed cholecalciferol (vitamin D3) 50 mcg PO DAILY 90 days clonazepam 1 mg PO BID 30 days dextroamphetamine-amphetamine 10 mg (Adderall) 10 mg PO TID 30 days diclofenac sodium 75 mg PO BID 30 days hydrochlorothiazide 25 mg PO QAM leg brace (Knee Support Brace) Spider knee pad ( bilat knee ) losartan 100 mg PO DAILY magnesium oxide 400 mg PO BEDTIME 30 days mirtazapine 7.5 mg PO BEDTIME 30 days oxycodone 5 mg PO BID PRN 7 days safety needles (BD Eclipse Luer-Santino) once a week sildenafil 100 mg PO DAILY PRN 4 days testosterone cypionate 40 mg (0.4 mL) IM QWEEK 30 days testosterone cypionate mg IM zolpidem ER 12.5 mg PO BEDTIME PRN 30 days Tobacco use date assessed: 12/16/22 Dental Screening Dental Screen Date: 05/10/23 Did you have a dental visit in the last 12 months?: Yes Did you have a dental problem in the last 6 months where you did not have access to dental care?: No Was dental information given to patient?: Patient has dentist HPI Cold Symptoms HPI Details Patient is a 48-year-old male being evaluated via telephone. Reports over the last 2 weeks having a cough and upper respiratory congestion. Reports his had similar symptoms and was given antibiotics now feeling better. He also continues to have intermittent episodes of joint pain stiffness worsen his knees. Has used diclofenac which originally was helping though not helping so much and he more. Does use low-dose oxycodone at times for his pain which only gave him minimal relief. We have done some workup on his joint pains including APPLE, Lyme testing and x-rays of his knees which were all pretty much unremarkable. PLAN : Will Try to hold statin therapy to see if joint pain and stiffness get better. 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 1. Little interest or pleasure in doing things: not at all 2. Feeling down, depressed, or hopeless: not at all 3. Trouble falling or staying asleep, or sleeping too much: several days 4. Feeling tired or having little energy: not at all 5. Poor appetite or overeating: not at all 6. Feeling bad about yourself - or that you are a failure or have let yourself or your family down: not at all 7. Trouble concentrating on things, such as reading the newspaper or watching television: not at all 8. Moving or speaking so slowly that other people could have noticed. Or the opposite - being so fidgety or restless that you have been moving around a lot more than usual: not at all 9. Thoughts that you would be better off or of hurting yourself in some way: not at all Total score: 1 Depression Screening Interpretation: Negative Depression Screening Done: Yes 45551 - PHQ-9 Billing: Yes Source: Developed by Drs. Shady Blunt, Amber Pope, Pablo Bardales and colleagues, with an educational jacquie from [employer]. Thrive Questionnaire Date Thrive assessed: 12/16/22 AUDIT C Alcohol Use Questionnaire (AUDIT-C) 1. How often do you have a drink containing alcohol?: Never Total Score: 0 ALVAREZ-7 AMB Questionnaire ALVAREZ-7 Date ALVAREZ - 7 assessed: 12/16/22 Source: Developed by Drs. Shady Blunt, Amber Pope, Pablo Bardales and colleagues, with an educational jacquie from [employer]. Review of Systems Const Reports headache(s) Eyes Denies loss of vision ENT Denies vertigo, Denies dizziness, Reports headache(s) and Denies sore throat Card Denies chest pain, Denies leg edema and Denies lightheadedness Resp Reports cough, Denies hemoptysis and Denies wheezing GI Denies abdominal pain, Denies melena, Denies constipation, Denies diarrhea and Denies vomiting Denies dysuria, Denies urinary frequency and Denies urinary urgency Musc Reports arthralgias, Denies joint swelling, Denies numbness and Denies tingling Neuro Denies behavioral changes, Denies vertigo, Denies dizziness, Reports headache(s), Denies loss of vision, Denies memory loss, Denies numbness and Denies tingling Psych Denies anxiety, Denies behavioral changes, Denies depression, Denies memory loss and Denies panic attacks Conrado/Lymph Denies easy bleeding and Denies easy bruising Aller/Immun Denies wheezing Physical exam (Primary Care) Tobacco/Smoking Status: Tobacco use Status Tobacco use date assessed 12/16/22 05/10/23 09:55 Patient Tobacco Use Status Former Tobacco user 05/10/23 09:55 Tobacco use type Cigarette 05/10/23 09:55 e-Cigarette/Vaping Use Never Used 05/10/23 09:55 PHQ-9: PHQ-9 Score PHQ-9: Total score 1 05/10/23 09:55 Depression Screening Interpretation: Negative Thrive Assessment: Date of Thrive Assessment Date Thrive assessed 12/16/22 05/10/23 09:55 Telehealth Telehealth Location of provider rendering services: practice address Location of patient: address on file Patient Identification confirmed using: Name, : Yes Telehealth method: voice only (Iphone) Patient verbally consented to treatment: Yes Patient verbally consented to billing insurance company: Yes Patient informed of any privacy concerns related to visit: Yes Minutes spent on Phone/Video with Pt.: 11 Assessment and Plan Assessment & Plan (1) Bronchitis: Code(s): J40 - Bronchitis, not specified as acute or chronic Plan: Patient has had 2 week history of sinusitis and. He reports his had similar symptoms week ago and was given antibiotics and feeling better. (2) Polyarthralgia: Code(s): M25.50 - Pain in unspecified joint Plan: He reports he continues to have flares joint stiffness and pain. Was evaluated with Rheumatology blood work, Lyme testing, X-rays of knees which were all recover. Does use diclofenac which has been helpful though recently has not been too helpful. Does use low-dose oxycodone which she reports has not been really helping his pain. Will supply him with a short-term prednisone taper. Advised to stop statin therapy as this may be a side effect of statin therapy. Medications: New azithromycin For 250 mg dose pack: take 500 mg today (day 1), then 250 mg for 4 days (days 2-5) PO 6 tabs 0RF J40 - Bronchitis, not specified as acute or chronic prednisone see taper instructions- take 3 tabs x 2 days ,take 2 tabs x 2 days , take 1 tabs x 2 days 10 mg PO DIRECTED 6 days 12 tabs 0RF M25.50 - Pain in unspecified joint Coding Level of Care Code Tele Est Pt Level 3 (98254) Diagnoses Bronchitis J40 Polyarthralgia M25.50
== END 2023-05-10 10:55 | disposition home or self-care (01) ==
LOC: HO.HMGH 09:53
PROVIDERS: PCP Physician Assistant; Visit Provider Physician Assistant
DX: J40 Bronchitis, not specified as acute or chronic (principal); M25.50 Pain in unspecified joint
CPT/HCPCS: 99213

== ENCOUNTER 2023-05-10 13:54 | Outpatient (AMB) | payer OTHER, SELFPAY ==
--- NOTE | 2023-05-10 13:56 | A.OFFVIS_ITS ---
Intake Intake Visit Reasons: ov- Patellofemoral arthritis B/L Intake Note: This is a 48 year old male who presents for bilateral patellofemoral arthritis. Patient reports his last injections gave him mild relief. He states that his knees feel very sore. Patient would like to know if his joints are okay. Allergies RY Inhibitors Allergy (Unknown, Verified 05/10/23 14:13) cough propranolol Allergy (Unknown, Verified 05/10/23 14:13) Unknown amlodipine Adverse Reaction (Unknown, Verified 05/10/23 14:13) flushing bupropion [Wellbutrin] Adverse Reaction (Unknown, Verified 05/10/23 14:13) headaches, SOB and wheezing ??? Increased anxiety Medication List - Last Reconciled 05/10/23 by Stephanie Membreno RN acetaminophen ER (Tylenol Arthritis Pain) 650 mg PO Q12H 30 days atorvastatin 20 mg PO DAILY 90 days azelaic acid 15% 1 appl topical BID 30 days azithromycin For 250 mg dose pack: take 500 mg today (day 1), then 250 mg for 4 days (days 2-5) PO blood pressure test kit-large As directed cholecalciferol (vitamin D3) 50 mcg PO DAILY 90 days clonazepam 1 mg PO BID 30 days dextroamphetamine-amphetamine 10 mg (Adderall) 10 mg PO TID 30 days diclofenac sodium 75 mg PO BID 30 days hydrochlorothiazide 25 mg PO QAM leg brace (Knee Support Brace) Spider knee pad ( bilat knee ) losartan 100 mg PO DAILY magnesium oxide 400 mg PO BEDTIME 30 days mirtazapine 7.5 mg PO BEDTIME 30 days oxycodone 5 mg PO BID PRN 7 days prednisone 10 mg PO DIRECTED 6 days safety needles (BD Eclipse Luer-Santino) once a week sildenafil 100 mg PO DAILY PRN 4 days testosterone cypionate 40 mg (0.4 mL) IM QWEEK 30 days testosterone cypionate mg IM zolpidem ER 12.5 mg PO BEDTIME PRN 30 days HPI ov- Patellofemoral arthritis B/L HPI Details 48-year-old male who returns to the [facility] today for a follow-up of bilateral knee pain. He states he has pain and soreness in his knees in his left as well as right knee. He had his last injection on 10/07/22 which provided him mild relief. He has tried ibuprofen, amphetamine and Percocet in the past for his pain. He finds occasional relief with diclofenac. 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 Current occupational exposures/hazards: No Cognitive needs: No Hearing needs: No Vision needs: No Review of Systems Const All systems reviewed & are unremarkable except as noted in HPI and below Physical Exam Const General: cooperative, healthy appearing, comfortable, no acute distress, well developed and alert Orientation/consciousness: patient oriented x3 HEENT Head: Yes normal to inspection, Yes normocephalic and Yes atraumatic Eyes General: appearance normal, both eyes and all related structures Resp Effort & Inspection: normal respiratory effort and able to speak in complete sentences Cardio Rate: regular rate Peripheral pulses: Peripheral pulses 2+ throughout GI Palpation (GI): Soft to palpation Skin Lesions: no lesions Rashes: no rashes Neuro General: patient oriented x3 Extrem Other: Bilateral knee skin intact, no erythema or joint effusion. Tenderness along the medial joint line in the right knee, lateral retropatellar tenderness in the left knee. Full ROM with crepitus. Negative Laurent?s. No ligamentous laxity. NVI. Assessment & Plan Assessment & Plan (1) Patellofemoral arthritis: Code(s): M17.10 - Unilateral primary osteoarthritis, unspecified knee (2) Osteoarthritis of knees, bilateral: Code(s): M17.0 - Bilateral primary osteoarthritis of knee Qualifiers: Osteoarthritis type: primary Qualified Code(s): M17.0 - Bilateral primary osteoarthritis of knee Plan A prescription for Celebrex has been sent to his pharmacy which he will take twice a day for 2 weeks and once a day thereafter. He will also be preapproved for gel injection for bilateral knees. I did put in another referral to rheumatology for further workup given his polyarthralgia that is not relieved with conservative treatment. He is content with this plan and see me back as needed. Orders: Referrals Rheumatology Referral M25.50 - Pain in unspecified joint Medications: New celecoxib (Celebrex) 200 mg PO BID 60 caps 3RF 30 days Patient Instructions: Scribed for Malika Stauffer PA-C, by Jamal Balbuena medical massage therapist, on 05/10/2023 at 2:15 PM EST. Hedy, Malika Stauffer PA-C, have personally reviewed and agree with the information entered by the scribe. Coding Level of Care Code Est Pt Level 3 (13081) Diagnoses Patellofemoral arthritis M17.10 Primary osteoarthritis of both knees M17.0 Osteoarthritis type: primary
== END 2023-05-10 14:51 | disposition home or self-care (01) ==
PROVIDERS: PCP Physician Assistant; Visit Provider Physician Assistant
DX: M17.0 Bilateral primary osteoarthritis of knee (principal)
CPT/HCPCS: 99214

== ENCOUNTER → 2023-05-10 13:54 | Outpatient (BNVA) | payer OTHER, SELFPAY | PROVIDERS: PCP Physician Assistant; Visit Provider Physician Assistant ==

== ENCOUNTER 2023-06-02 13:40 | Outpatient (AMB) | payer OTHER, SELFPAY ==
--- NOTE | 2023-06-02 13:50 | A.OFFVIS_ITS ---
Intake Intake Visit Reasons: ov-bilateral knee Euflexxa #1 Intake Note: Brian is a 48 year old male who presnets today for bilateral knee euflexxa #1 Allergies RY Inhibitors Allergy (Unknown, Verified 05/10/23 14:13) cough propranolol Allergy (Unknown, Verified 05/10/23 14:13) Unknown amlodipine Adverse Reaction (Unknown, Verified 05/10/23 14:13) flushing bupropion [Wellbutrin] Adverse Reaction (Unknown, Verified 05/10/23 14:13) headaches, SOB and wheezing ??? Increased anxiety HPI ov-bilateral knee Euflexxa #1 HPI Details 48-year-old male who [facility] knee Euflexxa gel injection #1. 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 Current occupational exposures/hazards: No Cognitive needs: No Hearing needs: No Vision needs: No Review of Systems Const All systems reviewed & are unremarkable except as noted in HPI and below Physical Exam Const General: cooperative, healthy appearing, comfortable, no acute distress, well developed and alert Orientation/consciousness: patient oriented x3 HEENT Head: Yes normal to inspection, Yes normocephalic and Yes atraumatic Eyes General: appearance normal, both eyes and all related structures Resp Effort & Inspection: normal respiratory effort and able to speak in complete sentences Cardio Rate: regular rate Peripheral pulses: Peripheral pulses 2+ throughout GI Palpation (GI): Soft to palpation Skin Lesions: no lesions Rashes: no rashes Neuro General: patient oriented x3 Extrem Other: Bilateral knee skin intact, no erythema or joint effusion. Tenderness along the medial joint line in the right knee, lateral retropatellar tenderness in the left knee. Full ROM with crepitus. Negative Laurent?s. No ligamentous laxity. NVI. Office Procedures Joint Injection/Drain Joint Injection/Drain Details: Euflexxa Primary Site: right knee Secondary Site: left knee Prep: site was prepped using aseptic technique, ethochloride spray was applied and injection warnings given Injected: in the joint Approach Used: anterolateral Procedure: The patient tolerated the procedure well Coding 18813 - Glenohumeral/Tronchanteric Bursa/Intraarticular Procedure code (CPT) selection complete Assessment & Plan Assessment & Plan (1) Patellofemoral arthritis: Code(s): M17.10 - Unilateral primary osteoarthritis, unspecified knee (2) Osteoarthritis of knees, bilateral: Code(s): M17.0 - Bilateral primary osteoarthritis of knee Qualifiers: Osteoarthritis type: primary Qualified Code(s): M17.0 - Bilateral primary osteoarthritis of knee Plan We discussed options today which include Euflexxa gel injection. They did consent to move forward with the bilateral knee Euflexxa gel injection #1, which was tolerated well. I recommended rest, ice and elevation and OTC anti- inflammatories PRN for discomfort. he will return in 1 week for Euflexxa gel injection #2. Patient Instructions: Scribed for Malika Stauffer PA-C, by Jamal Balbuena medical transcriber, on 06/02/2023 at 1:45 PM EST. I, Malika Stauffer PA-C, have personally reviewed and agree with the information entered by the scribe. Coding Level of Care Code Procedure Only Diagnoses Patellofemoral arthritis M17.10 Primary osteoarthritis of both knees M17.0 Osteoarthritis type: primary CPT Codes Coding - Joint 7: 81684 - Glenohumeral/Tronchanteric Bursa/Intraarticular ([id number])
== END 2023-06-02 14:05 | disposition home or self-care (01) ==
PROVIDERS: PCP Physician Assistant; Visit Provider Physician Assistant
DX: M17.0 Bilateral primary osteoarthritis of knee (principal)
CPT/HCPCS: 20610

== ENCOUNTER → 2023-06-02 13:40 | Outpatient (BNVA) | payer OTHER, SELFPAY | PROVIDERS: PCP Physician Assistant; Visit Provider Physician Assistant | DX: M17.0 Bilateral primary osteoarthritis of knee (principal) | CPT/HCPCS: 20610; J7323 ==

== ENCOUNTER 2023-06-09 14:40 | Outpatient (AMB) | payer OTHER, SELFPAY ==
[2023-06-09 14:48] VITALS: BMI 28.2
--- NOTE | 2023-06-09 14:48 | A.OFFVIS_ITS ---
Intake Vital Signs 06/09/23 14:48 Height 5 ft 9 in Weight 191 lb BMI 28.2 Intake Visit Reasons: ov- bilateral knee Euflexxa #2 Intake Note: Taty 48 year old male presents today for a bilateral knee Euflexxa injection #2. Allergies RY Inhibitors Allergy (Unknown, Verified 06/09/23 14:49) cough propranolol Allergy (Unknown, Verified 06/09/23 14:49) Unknown amlodipine Adverse Reaction (Unknown, Verified 06/09/23 14:49) flushing bupropion [Wellbutrin] Adverse Reaction (Unknown, Verified 06/09/23 14:49) headaches, SOB and wheezing ??? Increased anxiety HPI ov- bilateral knee Euflexxa #2 HPI Details 48-year-old male who returns to the [facility] today for bilateral knee Euflexxa gel injection #2. 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 Current occupational exposures/hazards: No Cognitive needs: No Hearing needs: No Vision needs: No Review of Systems Const All systems reviewed & are unremarkable except as noted in HPI and below Physical Exam Vital Signs: BMI result Body Mass Index 28.2 Const General: cooperative, healthy appearing, comfortable, no acute distress, well developed and alert Orientation/consciousness: patient oriented x3 HEENT Head: Yes normal to inspection, Yes normocephalic and Yes atraumatic Eyes General: appearance normal, both eyes and all related structures Resp Effort & Inspection: normal respiratory effort and able to speak in complete sentences Cardio Rate: regular rate Peripheral pulses: Peripheral pulses 2+ throughout GI Palpation (GI): Soft to palpation Skin Lesions: no lesions Rashes: no rashes Neuro General: patient oriented x3 Extrem Other: Bilateral knee skin intact, no erythema or joint effusion. Tenderness along the medial joint line in the right knee, lateral retropatellar tenderness in the left knee. Full ROM with crepitus. Negative Laurent?s. No ligamentous laxity. NVI. Office Procedures Joint Injection/Drain Joint Injection/Drain Details: Bilat knee euflexxa Primary Site: right knee Secondary Site: left knee Prep: site was prepped using aseptic technique, ethochloride spray was applied and injection warnings given Injected: in the joint Approach Used: anterolateral Procedure: The patient tolerated the procedure well Coding 30258 - Glenohumeral/Tronchanteric Bursa/Intraarticular Procedure code (CPT) selection complete Assessment & Plan Assessment & Plan (1) Patellofemoral arthritis: Code(s): M17.10 - Unilateral primary osteoarthritis, unspecified knee (2) Osteoarthritis of knees, bilateral: Code(s): M17.0 - Bilateral primary osteoarthritis of knee Qualifiers: Osteoarthritis type: primary Qualified Code(s): M17.0 - Bilateral primary osteoarthritis of knee Plan We discussed options today which include Euflexxa gel injection. They did consent to move forward with the bilateral knee Euflexxa gel injection #2, which was tolerated well. I recommended rest, ice and elevation and OTC anti- inflammatories PRN for discomfort. he will return in 1 week for Euflexxa gel inj ection #3. Patient Instructions: Scribed for Malika Stauffer PA-C, by Jamal Balbuena medical delivery technician, on 06/09/2023 at 2:45 PM EST. IMalika PA-C, have personally reviewed and agree with the information entered by the scribe. Coding Level of Care Code Procedure Only Diagnoses Patellofemoral arthritis M17.10 Primary osteoarthritis of both knees M17.0 Osteoarthritis type: primary CPT Codes Coding - Joint 7: 98584 - Glenohumeral/Tronchanteric Bursa/Intraarticular ([id number])
== END 2023-06-09 14:54 | disposition home or self-care (01) ==
PROVIDERS: PCP Physician Assistant; Visit Provider Physician Assistant
DX: M17.0 Bilateral primary osteoarthritis of knee (principal)
CPT/HCPCS: 20610

== ENCOUNTER → 2023-06-09 14:40 | Outpatient (BNVA) | payer OTHER, SELFPAY | PROVIDERS: PCP Physician Assistant; Visit Provider Physician Assistant | DX: M17.0 Bilateral primary osteoarthritis of knee (principal) | CPT/HCPCS: 20610; J7323 ==

== ENCOUNTER 2023-06-16 15:11 | Outpatient (AMB) | payer OTHER, SELFPAY ==
--- NOTE | 2023-06-16 15:20 | A.OFFVIS_ITS ---
Intake Vital Signs 06/16/23 15:21 Height 5 ft 9 in Weight 191 lb BMI 28.2 Intake Visit Reasons: ov- bilateral knee Euflexxa #3 Intake Note: Taty 48 year old male presents today for a bilateral knee Euflexxa injection #3. Allergies RY Inhibitors Allergy (Unknown, Verified 06/16/23 15:21) cough propranolol Allergy (Unknown, Verified 06/16/23 15:21) Unknown amlodipine Adverse Reaction (Unknown, Verified 06/16/23 15:21) flushing bupropion [Wellbutrin] Adverse Reaction (Unknown, Verified 06/16/23 15:21) headaches, SOB and wheezing ??? Increased anxiety HPI ov- bilateral knee Euflexxa #3 HPI Details 48-year-old male who returns to the [facility] today for bilateral knee Euflexxa gel injection #3. 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 Current occupational exposures/hazards: No Cognitive needs: No Hearing needs: No Vision needs: No Review of Systems Const All systems reviewed & are unremarkable except as noted in HPI and below Physical Exam Vital Signs: BMI result Body Mass Index 28.2 Const General: cooperative, healthy appearing, comfortable, no acute distress, well developed and alert Orientation/consciousness: patient oriented x3 HEENT Head: Yes normal to inspection, Yes normocephalic and Yes atraumatic Eyes General: appearance normal, both eyes and all related structures Resp Effort & Inspection: normal respiratory effort and able to speak in complete sentences Cardio Rate: regular rate Peripheral pulses: Peripheral pulses 2+ throughout GI Palpation (GI): Soft to palpation Skin Lesions: no lesions Rashes: no rashes Neuro General: patient oriented x3 Extrem Other: Bilateral knee skin intact, no erythema or joint effusion. Tenderness along the medial joint line in the right knee, lateral retropatellar tenderness in the left knee. Full ROM with crepitus. Negative Laurent?s. No ligamentous laxity. NVI. Office Procedures Joint Injection/Drain Joint Injection/Drain Details: bilateral euflexxa Primary Site: right knee Secondary Site: left knee Prep: site was prepped using aseptic technique, ethochloride spray was applied and injection warnings given Injected: in the joint Approach Used: anterolateral Procedure: The patient tolerated the procedure well and there was some relief with the local anesthesia Coding 00817 - Glenohumeral/Tronchanteric Bursa/Intraarticular Procedure code (CPT) selection complete Assessment & Plan Assessment & Plan (1) Patellofemoral arthritis: Code(s): M17.10 - Unilateral primary osteoarthritis, unspecified knee (2) Osteoarthritis of knees, bilateral: Code(s): M17.0 - Bilateral primary osteoarthritis of knee Qualifiers: Osteoarthritis type: primary Qualified Code(s): M17.0 - Bilateral primary osteoarthritis of knee Plan We discussed options today which include Euflexxa gel injection. They did consent to move forward with the bilateral knee Euflexxa gel injection #3, which was tolerated well. I recommended rest, ice and elevation and OTC anti- inflammatories PRN for discomfort. If symptoms persist or worsens over the next 6-8 weeks, patient will contact the office, otherwise follow-up as needed. Patient Instructions: Scribed for Malika Stauffer PA-C, by Jamal Balbuena certified medical coder, on 06/16/2023 at 3:30 PM EST. IMalika PA-C, have personally reviewed and agree with the information entered by the scribe. Coding Level of Care Code Procedure Only Diagnoses Patellofemoral arthritis M17.10 Primary osteoarthritis of both knees M17.0 Osteoarthritis type: primary CPT Codes Coding - Joint 7: 01252 - Glenohumeral/Tronchanteric Bursa/Intraarticular ([id number])
[2023-06-16 15:21] VITALS: BMI 28.2
== END 2023-06-16 15:37 | disposition home or self-care (01) ==
PROVIDERS: PCP Physician Assistant; Visit Provider Physician Assistant
DX: M17.0 Bilateral primary osteoarthritis of knee (principal)
CPT/HCPCS: 20610

== ENCOUNTER → 2023-06-16 15:11 | Outpatient (BNVA) | payer OTHER, SELFPAY | PROVIDERS: PCP Physician Assistant; Visit Provider Physician Assistant | DX: M17.0 Bilateral primary osteoarthritis of knee (principal) | CPT/HCPCS: 20610; J7323 ==

== ENCOUNTER 2023-07-20 15:13 | Outpatient (AMB) | payer OTHER, SELFPAY ==
--- NOTE | 2023-07-20 15:15 | MHC.OFFVIS ---
Intake Intake Visit Reasons: 4 mo follow up-LVM Intake Note: Patient presents for 4 month follow up. I missed my last one,I seem to have some issues with the adderall. Allergies RY Inhibitors Allergy (Unknown, Verified 07/20/23 15:17) cough propranolol Allergy (Unknown, Verified 07/20/23 15:17) Unknown amlodipine Adverse Reaction (Unknown, Verified 07/20/23 15:17) flushing bupropion [Wellbutrin] Adverse Reaction (Unknown, Verified 07/20/23 15:17) headaches, SOB and wheezing ??? Increased anxiety Medication List - Last Reconciled 07/20/23 by SHANEKA Reno acetaminophen ER (Tylenol Arthritis Pain) 650 mg PO Q12H 30 days atorvastatin 20 mg PO DAILY 90 days azelaic acid 15% 1 appl topical BID 30 days azithromycin For 250 mg dose pack: take 500 mg today (day 1), then 250 mg for 4 days (days 2-5) PO blood pressure test kit-large As directed celecoxib (Celebrex) 200 mg PO BID 30 days cholecalciferol (vitamin D3) 50 mcg PO DAILY 90 days clonazepam 1 mg PO BID 30 days dextroamphetamine-amphetamine 10 mg (Adderall) 10 mg PO TID 30 days diclofenac sodium 75 mg PO BID 30 days hydrochlorothiazide 25 mg PO QAM leg brace (Knee Support Brace) Spider knee pad ( bilat knee ) losartan 100 mg PO DAILY magnesium oxide 400 mg PO BEDTIME 30 days mirtazapine 7.5 mg PO BEDTIME 30 days oxycodone 5 mg PO BID PRN 7 days prednisone 10 mg PO DIRECTED 6 days safety needles (BD Eclipse Luer-Santino) once a week sildenafil 100 mg PO DAILY PRN 4 days testosterone cypionate 40 mg (0.4 mL) IM QWEEK 30 days testosterone cypionate mg IM zolpidem ER 12.5 mg PO BEDTIME PRN 30 days HPI HPI Comments History of Present Illness Details 48-yr-old male presents for f/u visit. Pt denies any significant interval medical changes. Pt states he is not sure that his Adderall 10mg tid is not working well. It is not giving him the focus and energy it used to. And he is now feeling a crash between the doses. He states in the past, he did try the Adderall ER 15-20mg- it was not effective, he is not sure but maybe he did not feel right or it was not kicking in as quickly. He is using his CPAP nightly, states he never sleeps great but he has slept worse . He just always feels tired, no energy, even when on vacation. Compliance Report Usage 06/20/2023 - 07/19/2023: Usage days 26/30 days (87%) >= 4 hours Average usage (days used) 5 hours 17 minutes AirSense 10 AutoSet Serial number [id number] Mode AutoSet Min Pressure 8 cmH2O Max Pressure 16 cmH2O EPR Fulltime EPR level 2 Response Standard Therapy Pressure - Maximum: 10.9 Residual AHI: 0.8 per hour 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 Current occupational exposures/hazards: No Cognitive needs: No Hearing needs: No Vision needs: No Review of Systems Const All systems reviewed & are unremarkable except as noted in HPI and below Physical Exam Const General: cooperative and no acute distress Orientation/consciousness: patient oriented x3 HEENT Head: Yes normocephalic Resp Effort & Inspection: normal respiratory effort and able to speak in complete sentences Neuro General: patient oriented x3, gait normal and CN's II-XI intact bilaterally Cognition (Neuro): normal cognition Motor exam (neuro): 5/5 motor strength present throughout Psych Appearance: grossly normal Mental Status: mental status grossly normal Speech and movement: Normal speech and movement present Affect: normal affect Attitude: cooperative Thought process: Normal thought process present Thought content: Normal thought content present Insight: Good insight present (Psych) Judgement: Good judgement present (Psych) Assessment & Plan Assessment & Plan (1) Obstructive sleep apnea: Comment: severe. AHI 26.4/hr w/ O2 perry 79% Code(s): G47.33 - Obstructive sleep apnea (adult) (pediatric) (2) ADD (attention deficit disorder): Code(s): F98.8 - Other specified behavioral and emotional disorders with onset usually occurring in childhood and adolescence Qualifiers: Hyperactivity presence: absent Qualified Code(s): F98.8 - Other specified behavioral and emotional disorders with onset usually occurring in childhood and adolescence (3) Hypersomnia with sleep apnea: Code(s): G47.10 - Hypersomnia, unspecified; G47.30 - Sleep apnea, unspecified Plan Continue Mirtazapine 7.5mg po qhs. May continue ambien. Use prn Clonazepam sparingly. Stop Adderall 10mg tid- Trial Adderall ER 30mg qam- 10 day supply sent, pt to update me w/ effect in 7 days- ie focus, energy, any let down or crash s/s. Previous trials- Modafinil 200mg- caused CABA Continue APAP. f/u in 4 months or sooner prn. Medications: New dextroamphetamine-amphetamine 30 mg ER (Adderall XR) Partial Fill upon patient request. 30 mg PO QAM 10 days 10 caps 0RF Discontinued dextroamphetamine-amphetamine 10 mg (Adderall) administer doses at least 4 hours apart; Partial Fill upon patient request. Discontinued Reason: Doctor's Order 10 mg PO TID 30 days 90 tabs 0RF Coding Level of Care Code Est Pt Level 4 (65507) Diagnoses Obstructive sleep apnea G47.33 Attention deficit disorder (ADD) without hyperactivity F98.8 Hyperactivity presence: absent Hypersomnia with sleep apnea G47.10; G47.30
== END 2023-07-20 16:16 | disposition home or self-care (01) ==
PROVIDERS: Visit Provider Nurse Practitioner Family
DX: G47.33 Obstructive sleep apnea (adult) (pediatric) (principal); F98.8 Other specified behavioral and emotional disorders with onset usually occurring in childhood and adolescence; G47.10 Hypersomnia, unspecified; G47.30 Sleep apnea, unspecified
CPT/HCPCS: 99214

== ENCOUNTER → 2023-07-20 15:13 | Outpatient (BNVA) | payer OTHER, SELFPAY | PROVIDERS: Visit Provider Nurse Practitioner Family ==

== ENCOUNTER 2023-10-27 14:38 | Outpatient (AMB) | payer OTHER, SELFPAY ==
--- NOTE | 2023-10-27 14:44 | A.OFFVIS_ITS ---
Intake Vital Signs 10/27/23 14:50 Height 5 ft 9 in Weight 191 lb BMI 28.2 Intake Visit Reasons: OV-B/L knee injection-last inj. 06/16/23 Intake Note: Brian garcia 48 year old male presents today for a follow up of bilateral knee s/p Euflexxa gel injections. Patient reports gel injections provided him with some relief however his pain has returned. Currently he has constant pain and feels popping with flexion. He was given knee braces however these are restrictive and is not able to use at work. Allergies RY Inhibitors Allergy (Unknown, Verified 10/27/23 14:50) cough propranolol Allergy (Unknown, Verified 10/27/23 14:50) Unknown amlodipine Adverse Reaction (Unknown, Verified 10/27/23 14:50) flushing bupropion [Wellbutrin] Adverse Reaction (Unknown, Verified 10/27/23 14:50) headaches, SOB and wheezing ??? Increased anxiety HPI OV-B/L knee injection-last inj. 06/16/23 HPI Details 48-year-old male who returns to the [facility] today for a follow-up of bilateral knee pain. He had his last Euflexxa gel injection on 06/16/23 which provided him mild relief however his pain has returned. He currently states he has constant pain in his knee as well as popping sensation with flexion. He was given a knee brace however he finds it restrictive and has not been able to use at work. 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 Tenderness along the medial and lateral joint line. Full ROM with crepitus. Negative Laurent?s. No ligamentous laxity. NVI. Office Procedures Joint Injection/Drain Joint Injection/Drain Primary Site: right knee Secondary Site: left knee Prep: site was prepped using aseptic technique, ethochloride spray was applied and injection warnings given Injected: 80 mg of, DepoMedrol, with 8 mL of, 1% plain lidocaine and in the joint Approach Used: anterolateral Procedure: The patient tolerated the procedure well and there was some relief with the local anesthesia Coding 86597 - Glenohumeral/Tronchanteric Bursa/Intraarticular Procedure code (CPT) selection complete Assessment & Plan Assessment & Plan (1) Osteoarthritis of knees, bilateral: Code(s): M17.0 - Bilateral primary osteoarthritis of knee Qualifiers: Osteoarthritis type: primary Qualified Code(s): M17.0 - Bilateral primary osteoarthritis of knee Plan We discussed options today which include steroid injection. They did consent to move forward with the bilateral injection, which was tolerated well. I recommended rest, ice and elevation and OTC anti-inflammatories PRN for discomfort. If symptoms persist or worsens over the next 6-8 weeks, patient will contact the office, otherwise follow-up as needed. Patient Instructions: Scribed for Malika Stauffer PA-C, by Jamal Balbuena chief medical physicist, on 10/27/2023 at 2:45 PM EST. Malika Knott PA-C, have personally reviewed and agree with the information entered by the scribe. Coding Level of Care Code Est Pt Level 3 (61478) Diagnoses Primary osteoarthritis of both knees M17.0 Osteoarthritis type: primary CPT Codes Coding - Joint 7: 10277 - Glenohumeral/Tronchanteric Bursa/Intraarticular ([id number])
[2023-10-27 14:50] VITALS: BMI 28.2
== END 2023-10-27 16:16 | disposition home or self-care (01) ==
PROVIDERS: PCP Physician Assistant; Visit Provider Physician Assistant
DX: M17.0 Bilateral primary osteoarthritis of knee (principal)
CPT/HCPCS: 20610; 99213

== ENCOUNTER → 2023-10-27 14:38 | Outpatient (BNVA) | payer OTHER, SELFPAY | PROVIDERS: PCP Physician Assistant; Visit Provider Physician Assistant | DX: M17.0 Bilateral primary osteoarthritis of knee (principal) | CPT/HCPCS: 20610; J1010 ==

== ENCOUNTER 2023-11-03 14:44 | Outpatient (AMB) | payer OTHER, SELFPAY ==
[2023-11-03 14:46] VITALS: PULSE 112; O2SAT 96; BMI 28.2
--- NOTE | 2023-11-03 14:46 | MHC.OFFVIS ---
Vital Signs 11/03/23 14:46 Height 5 ft 9 in Weight 191 lb BMI 28.2 Pulse 112 H Pulse Source Pulse Oximeter Pulse Oximetry (%) 96 Oxygen Delivery Method Room Air Intake Visit Reasons: Joint Pain/? FM Intake Note: New pt presents today for consult. Saw rheumatology 08/14/20 Dr Joshua. No family history of rheumatoid arthritis. C/o multiple joint pain ? fibromyalgia Has tried diclofenac 75mg bid with some relief Public Health Epidemiologist Required: No Accompanied by: Self / Same As Patient Allergies RY Inhibitors Allergy (Unknown, Verified 11/03/23 14:51) cough propranolol Allergy (Unknown, Verified 11/03/23 14:51) Unknown amlodipine Adverse Reaction (Unknown, Verified 11/03/23 14:51) flushing bupropion [Wellbutrin] Adverse Reaction (Unknown, Verified 11/03/23 14:51) headaches, SOB and wheezing ??? Increased anxiety Medication List - Last Reconciled 11/03/23 by Ralph Otto MD acetaminophen ER (Tylenol Arthritis Pain) 650 mg PO Q12H 30 days atorvastatin 20 mg PO DAILY 90 days azelaic acid 15% 1 appl topical BID 30 days blood pressure test kit-large As directed cholecalciferol (vitamin D3) 50 mcg PO DAILY 90 days clonazepam 1 mg PO BID 30 days dextroamphetamine-amphetamine 30 mg ER (Adderall XR) 30 mg PO QAM 30 days diclofenac sodium 75 mg PO BID 30 days hydrochlorothiazide 25 mg PO QAM leg brace (Knee Support Brace) Spider knee pad ( bilat knee ) losartan 100 mg PO DAILY magnesium oxide 400 mg PO BEDTIME 30 days oxycodone 5 mg PO BID PRN 7 days safety needles (BD Eclipse Luer-Santino) once a week sildenafil 100 mg PO DAILY PRN 4 days testosterone cypionate 40 mg (0.4 mL) IM QWEEK 30 days testosterone cypionate mg IM zolpidem ER 12.5 mg PO BEDTIME PRN 30 days HPI Comments Details: 48-year-old male referred for evaluation of diffuse joint pain. He was evaluated by Dr. Joshua 08/2020 and no evidence of an autoimmune rheumatic disease was found. Patient states that his joint pain continues. It seems to come in flares. It affects most of his joints including his entire spine. Arms. Knees. States that he has generalized stiffness of his spine, usually worse in the morning. Improves as he gets going. States that he has been taking diclofenac 75 mg Twice daily and induced to work fairly well until recently. States that some days nothing takes away the pain. 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 Works to 60 hours a week. He can not quit his job. Recently he had bilateral knee cortisone injections by Orthopedics which gave him some relief. He is unaware of any family history of an autoimmune rheumatic disease Most recent history by Dr. Joshua 08/2020: 45yoM referred by his PCP presents for evaluation of polyarthralgia. 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 His job is very physical and requires him to spend most of his day outside. He states that he has pain in multiple joints on a daily basis, states it is worse in his hands, knees, elbows. He denies any morning stiffness or joint swelling. His pain is generally worse with activity and better with rest. He works 5 days a week and feels that his pain is somewhat improved on the weekends. He has been managing his symptoms with diclofenac 75 mg b.i.d. and states that this does help his pain. He can occasionally get some GI upset with the medication but also admits that he does not always take it with food. No family history of rheumatoid arthritis. 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 Current occupational exposures/hazards: No Cognitive needs: No Hearing needs: No Vision needs: No Review of Systems [facility] Reports back pain, Reports myalgias, Reports arthralgias and Reports stiffness Physical Exam Vital Signs: Last Vital Signs Pulse 112 H 11/03/23 14:46 Pulse Ox 96 11/03/23 14:46 Oxygen Delivery Method Room Air 11/03/23 14:46 BMI result Body Mass Index 28.2 Const General: cooperative, healthy appearing and comfortable Nutritional Appearance: overweight Orientation/consciousness: patient oriented x3 Limitations: no limitations HEENT Head: Yes normocephalic and Yes atraumatic Resp Effort & Inspection: normal respiratory effort and able to speak in complete sentences Auscultation: clear to auscultation bilaterally Cardio Rate: regular rate Rhythm: regular rhythm Back/Spine/Pelvis Other: Marely test 10-15 cm Normal lateral flexion test bilaterally Neuro General: patient oriented x3 Extrem Other: Osteoarthritic changes of both hands with no active synovitis 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 He was evaluated by Dr. Josiane ovalles in 08/2020 and no evidence of an autoimmune rheumatic disease was found. Inflammatory markers and serologies were negative. Upon evaluation today, I do not see any evidence of an autoimmune rheumatic disease. Picture rather consistent with generalized osteoarthritis. Follow-up p.r.n. Plan I spent 30 minutes reviewing patient's chart, evaluating patient,, counseling patient and documenting in the chart Coding Level of Care Code New Pt Level 3 (25590) Diagnoses Polyarthralgia M25.50
== END 2023-11-03 15:30 | disposition home or self-care (01) ==
PROVIDERS: PCP Physician Assistant; Visit Provider Student in an Organized Health Care Education/Training Program
DX: M25.50 Pain in unspecified joint (principal)
CPT/HCPCS: 99203

== ENCOUNTER → 2023-11-03 14:44 | Outpatient (BNVA) | payer OTHER, SELFPAY | PROVIDERS: PCP Physician Assistant; Visit Provider Student in an Organized Health Care Education/Training Program ==

== ENCOUNTER 2024-05-10 13:49 | Outpatient (AMB) | payer OTHER, SELFPAY ==
[2024-05-10 14:00] VITALS: BP 160/108; PULSE 119; O2SAT 98; BMI 30.6
--- NOTE | 2024-05-10 14:00 | A.OFFPC_ITS ---
Vital Signs 05/10/24 14:00 Height 5 ft 9 in Weight 207 lb 8 oz BMI 30.6 BP 160/108 H Blood Pressure Location Lt brachial Position Sitting Pulse 119 H Pulse Source Pulse Oximeter Pulse Oximetry (%) 98 Oxygen Delivery Method Room Air Intake Visit Reasons: MED visit-HTN F/U Assistant Paralegal Required: No Accompanied by: Self / Same As Patient Allergies RY Inhibitors Allergy (Unknown, Verified 05/10/24 14:01) cough propranolol Allergy (Unknown, Verified 05/10/24 14:01) Unknown amlodipine Adverse Reaction (Unknown, Verified 05/10/24 14:01) flushing bupropion [Wellbutrin] Adverse Reaction (Unknown, Verified 05/10/24 14:01) headaches, SOB and wheezing ??? Increased anxiety Medication List - Last Reconciled 05/10/24 by Sal Ferrell PA-C acetaminophen ER (Tylenol Arthritis Pain) 650 mg PO Q12H 30 days albuterol sulfate 90 mcg/actuation (Ventolin HFA) 1 inh inhalation QID PRN 30 days atorvastatin 20 mg PO DAILY 90 days azelaic acid 15% 1 appl topical BID 30 days blood pressure test kit-large As directed cholecalciferol (vitamin D3) 50 mcg PO DAILY 90 days clonazepam 1 mg PO BID 30 days dextroamphetamine-amphetamine 30 mg ER (Adderall XR) 30 mg PO QAM 30 days dextroamphetamine-amphetamine 5 mg (Adderall) 5 - 10 mg (1 - 2 x 5 mg) PO DAILY 30 days diclofenac sodium 75 mg PO BID 30 days hydrochlorothiazide 25 mg PO QAM leg brace (Knee Support Brace) Spider knee pad ( bilat knee ) losartan 100 mg PO DAILY magnesium oxide 400 mg PO BEDTIME 30 days oxycodone 5 mg PO BID PRN 7 days safety needles (BD Eclipse Luer-Santino) once a week sildenafil 100 mg PO DAILY PRN 4 days testosterone cypionate 40 mg (0.4 mL) IM QWEEK 30 days testosterone cypionate mg IM zolpidem ER 12.5 mg PO BEDTIME PRN 30 days Tobacco use date assessed: 12/16/22 Dental Screening Dental Screen Date: 05/10/23 HPI MED visit-HTN F/U HPI Details Patient is a 49-year-old male here today for follow-up visit. .? Patient has a past medical history si gnificant for hypertension, obstructive sleep apnea, generalized anxiety disorder, hyperlipidemia, polyarthralgia .. ADD: Now continues on Adderall 20 mg extended release and 15 mg immediate release in the afternoons. Neurologist has taken over his Adderall prescribing as his symptoms may be related to sleep disorder. He does report good effect from the Adderall on reducing his depression and increasing his mood. .. Bilateral knee pain: Has followed with orthopedic here in [place] in his received a cortisone injections though have not been particularly helpful. He has been using diclofenac which keeps his knee pain somewhat at [place]. He does t ry Tylenol from time to time though was not helpful. Does use oxycodone from time to time for pain scales 9-10. HTN:? Patient's blood pressure elevated today in office . Of note on daily NSAID. Has been on losartan and hydrochlorothiazide quite some time though feels it is not been completely controlling his blood pressure.? Denies any headaches, chest discomforts or shortness of breath. .. hyperLipidemia:? Continues on statin therapy without any side effect.? Most recent lipid panel acceptable. .. Obstructive sleep apnea:? Has seen neurologist and was started on CPAP machine for sleep and has been compliant.? Also increased his mirtazapine to 30 mg.? Unfortunately has not helped him with his daytime somnolence.. .. Major depressive disorder:? Depression has been reported as better since starting Adderall..? .. Hypogonadism:?Now seeing Urology at ([facility]) in [place] whom is managing his IM testosterone ? Has followed up with a urologist whom he reports will be taking over his testosterone therapy.? He reports most recent testosterone level at a 1000 though they would like him to be more around 700 .? 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 1. Little interest or pleasure in doing things: not at all 2. Feeling down, depressed, or hopeless: not at all 3. Trouble falling or staying asleep, or sleeping too much: not at all 4. Feeling tired or having little energy: not at all 5. Poor appetite or overeating: not at all 6. Feeling bad about yourself - or that you are a failure or have let yourself or your family down: not at all 7. Trouble concentrating on things, such as reading the newspaper or watching television: not at all 8. Moving or speaking so slowly that other people could have noticed. Or the opposite - being so fidgety or restless that you have been moving around a lot more than usual: not at all 9. Thoughts that you would be better off or of hurting yourself in some way: not at all Total score: 0 Depression Screening Interpretation: Negative Depression Screening Done: Yes 15139 - PHQ-9 Billing: Yes Source: Developed by Drs. Shady Blunt, Amber Pope, Pablo Bardales and colleagues, with an educational jacquie from [employer]. Thrive Questionnaire Date Thrive assessed: 05/10/24 I am a: Patient What is your living situation today?: I have a steady place to live Within the past 12 months, did the food you bought not last and you didn't have the money to get more?: Never true Within the past 12 months, did you worry whether your food would run out before you got money to buy more?: Never true Do you have trouble paying for medicines?: No Do you have trouble getting transportation to medical appointments?: No Do you have trouble paying your heating and electricity bill?: No Do you have trouble taking care of your child, family member or friend?: No Do you have trouble with day-to-day activities such as bathing, preparing meals, shopping, managing finances, etc.?: No Are you currently unemployed and looking for a job?: No Are you interested in more education?: No Please select the resources that you would like help with: None Currently or been in a relationship where the following occur: No concerns reported THRIVE Score: 0 AUDIT C Alcohol Use Questionnaire (AUDIT-C) 1. How often do you have a drink containing alcohol?: Never Total Score: 0 ALVAREZ-7 AMB Questionnaire ALVAREZ-7 Date ALVAREZ - 7 assessed: 05/10/24 Feeling nervous, anxious, or on edge: 0 = Not at all Not being able to stop or control worryin = Not at all Worrying too much about different things: 0 = Not at all Trouble relaxin = Not at all Being so restless that it is hard to sit still: 0 = Not at all Becoming easily annoyed or irritable: 0 = Not at all Feeling afraid as if something awful might happen: 0 = Not at all Total ALVAREZ-7 score (0-4 normal; 5-9 mild; 10-14 moderate; 15-21 severe): 0 Source: Developed by Drs. Shady Blunt, Amber Pope, Pablo Bardales and colleagues, with an educational jacquie from [employer]. ALVAREZ-7 Assessment Billing ALVAREZ-7 Assessment Tool: ALVAREZ-7 Assessment 29435 Review of Systems Const Denies headache(s) Eyes Denies loss of vision ENT Denies vertigo, Denies dizziness, Denies headache(s) and Denies sore throat Card Denies chest pain, Denies leg edema and Denies lightheadedness Resp Denies cough, Denies hemoptysis and Denies wheezing GI Denies abdominal pain, Denies melena, Denies constipation, Denies diarrhea and Denies vomiting Denies dysuria, Denies urinary frequency and Denies urinary urgency Musc Denies arthralgias, Denies joint swelling, Denies numbness and Denies tingling Neuro Denies Abnormal speech present, Denies behavioral changes, Denies vertigo, Denies dizziness, Denies headache(s), Denies loss of vision, Denies memory loss, Denies numbness and Denies tingling Psych Denies anxiety, Denies behavioral changes, Denies depression, Denies memory loss and Denies panic attacks Conrado/Lymph Denies easy bleeding and Denies easy bruising Aller/Immun Denies wheezing Physical exam (Primary Care) Vital Signs: Last Vital Signs Pulse 119 H 05/10/24 14:00 BP 160/108 H 05/10/24 14:00 Pulse Ox 98 05/10/24 14:00 Oxygen Delivery Method Room Air 05/10/24 14:00 BMI result Body Mass Index 30.6 Tobacco/Smoking Status: Tobacco use Status Tobacco use date assessed 12/16/22 05/10/24 14:00 Patient Tobacco Use Status Former Tobacco user 05/10/24 14:00 Tobacco use type Cigarette 05/10/24 14:00 e-Cigarette/Vaping Use Never Used 05/10/24 14:00 PHQ-9: PHQ-9 Score PHQ-9: Total score 0 05/10/24 14:02 Depression Screening Interpretation: Negative Thrive Assessment: Date of Thrive Assessment Date Thrive assessed 05/10/24 05/10/24 14:02 Currently or been in a relationship where the following occur: No concerns reported Const General: healthy appearing, no acute distress, alert and awake Nutritional Appearance: well nourished Orientation/consciousness: oriented to person, oriented to place and oriented to time HENMT Ears: TM's normal bilaterally General nose exam: Normal nasal mucous membranes and turbinates present Eyes Conjunctivae: conjunctivae normal Sclerae: sclerae normal Pupils: Equal, round and reactive pupils present Neck Neck: Yes no lymphadenopathy and Yes no JVD Thyroid: Thyroid normal Carotids: no bruits Resp Effort & Inspection: normal respiratory effort and not tachypneic Auscultation: no crackles, no rales, no rhonchi and no wheezes Cardio Rate: regular rate Rhythm: regular rhythm Heart sounds: no murmurs and normal S1 and S2 GI Palpation (GI): Soft to palpation, nontender, no hepatomegaly and no splenomegaly Auscultation: normal bowel sounds Skin General skin exam: no rashes or lesions noted and dry skin Neuro General: oriented to person, oriented to place and oriented to time Cranial nerves: Yes Equal, round and reactive pupils present Speech: No Abnormal speech present Gait exam (Neuro): Normal gait present Motor exam (neuro): no tremor noted Extrem Right upper extremity: full ROM Left upper extremity: full ROM Right lower extremity: full ROM; no edema Left lower extremity: full ROM; no edema Psych Mental Status: mental status grossly normal Speech and movement: Normal speech and movement present Affect: normal affect Attitude: cooperative Thought process: Normal thought process present Office Procedures Flu Questionnaire Does the patient have a severe egg allergy?: No Immunizations Fluarix Triv [id number] (PF) 45 mcg (15 mcg x 3)/0.5 mL IM syringe Performing Provider: Sal Ferrell PA-C Performing Location: [facility] [place], [place] [facility] Documented (not given) by: BILLIE Gonsalez on 05/10/24 14:01 Reason Not Given: Patient Refused Coding Level of Care Code Est Pt Level 4 (00151) Diagnoses Essential hypertension I10 Hypertension type: essential hypertension Attention deficit disorder (ADD) without hyperactivity F98.8 Hyperactivity presence: absent Hyperlipidemia, unspecified hyperlipidemia type E78.5 Hyperlipidemia type: unspecified ALVAREZ (generalized anxiety disorder) F41.1 Primary osteoarthritis of both knees M17.0 Osteoarthritis type: primary MDD (major depressive disorder), recurrent episode, moderate F33.1 Additional Codes ALVAREZ-7 Assessment Billing - ALVAREZ-7 Assessment Tool: ALVAREZ-7 Assessment 90597 ([id number]) Assessment & Plan Assessment & Plan (1) HTN (hypertension): Code(s): I10 - Essential (primary) hypertension Category: Medical Qualifiers: Hypertension type: essential hypertension Qualified Code(s): I10 - Essential (primary) hypertension Plan: Patient's blood pressure elevated today in office. Unclear if this is due to daily NSAID use along with stimulant ADHD medication. He feels his losartan and hydrochlorothiazide have not been working for him for quite some time. He has tried multiple different blood pressure medications in the past including RY inhibitors, propranolol, amlodipine all with side effects. Will transitioned to telmisartan hydrochlorothiazide to see if this will offer him better blood pressure control. Goal blood pressures to be below 140/90 (2) ADD (attention deficit disorder): Code(s): F98.8 - Other specified behavioral and emotional disorders with onset usually occurring in childhood and adolescence Category: Medical Qualifiers: Hyperactivity presence: absent Qualified Code(s): F98.8 - Other specified behavioral and emotional disorders with onset usually occurring in childhood and adolescence Plan: Patient continues to follow he neurologist and sleep specialist. Continues on stimulant medication that does help him with his daytime somnolence and fatigue. (3) HLD (hyperlipidemia): Code(s): E78.5 - Hyperlipidemia, unspecified Category: Medical Qualifiers: Hyperlipidemia type: unspecified Qualified Code(s): E78.5 - Hyperlipidemia, unspecified Plan: Patient's most recent lipid panel showing good control of his total cholesterol and LDL. He will continue on atorvastatin 20 mg with goal LDL to remain below 130 (4) ALVAREZ (generalized anxiety disorder): Code(s): F41.1 - Generalized anxiety disorder Category: Medical Plan: Patient reports his anxiety has been fairly well controlled. He reduced his clonazepam use quite significantly. (5) Osteoarthritis of knees, bilateral: Code(s): M17.0 - Bilateral primary osteoarthritis of knee Category: Medical Qualifiers: Osteoarthritis type: primary Qualified Code(s): M17.0 - Bilateral primary osteoarthritis of knee Plan: Brian continues to have bilateral knee pain secondary to osteoarthritis and patellar tendon issue. Has seen Orthopedics and got cortisone injections though have not been particularly helpful. He does use diclofenac on a daily basis which does help some. He does report oxycodone really helps him reduce his pain. He feels his knee pain is secondary to his physical work though was not able to change his job due to financial reasons. (6) MDD (major depressive disorder), recurrent episode, moderate: Code(s): F33.1 - Major depressive disorder, recurrent, moderate Category: Medical Plan: Patient reports his depression and anxiety has been pretty well stable since being on stimulant ADHD medication Orders: Orders Lipid Panel 05/10/24 E78.5 - Hyperlipidemia, unspecified Microalbumin, Random (w Creat) 05/10/24 I10 - Essential (primary) hypertension Complete Blood Count no Diff 05/10/24 I10 - Essential (primary) hypertension Influenza [id number] Immunization 05/10/24 Z23 - Encounter for immunization Comprehensive [place]. Panel Fast 05/10/24 I10 - Essential (primary) hypertension Medications: New telmisartan-hydrochlorothiazid 80-25 mg 1 tab PO DAILY 90 days 90 tabs 0RF I10 - Essential (primary) hypertension Changed From oxycodone Partial Fill upon patient request. 5 mg PO BID 7 days PRN 14 tabs 0RF pain M17.10 - Unilateral primary osteoarthritis, unspecified knee To oxycodone Partial Fill upon patient request. 5 mg PO Q8H 8 days 24 tabs 0RF pain M17.10 - Unilateral primary osteoarthritis, unspecified knee Refilled clonazepam 1 mg PO BID 30 days 60 tabs 1RF F41.1 - Generalized anxiety disorder On Hold hydrochlorothiazide Hold Comment: Doctor's Order 25 mg PO QAM 90 tabs 2RF losartan Hold Comment: Doctor's Order 100 mg PO DAILY 90 tabs 2RF Patient Instructions: Goal: Blood pressure to be below 140/90 Barriers: Adherence to healthy eating habits
== END 2024-05-10 14:48 | disposition home or self-care (01) ==
LOC: HO.HMCH 13:50
PROVIDERS: PCP Physician Assistant; Visit Provider Physician Assistant
DX: I10 Essential (primary) hypertension (principal); F98.8 Other specified behavioral and emotional disorders with onset usually occurring in childhood and adolescence; F33.1 Major depressive disorder, recurrent, moderate; E78.5 Hyperlipidemia, unspecified; F41.1 Generalized anxiety disorder; M17.0 Bilateral primary osteoarthritis of knee

== ENCOUNTER → 2024-05-10 13:49 | Outpatient (BNVA) | payer OTHER, SELFPAY | PROVIDERS: PCP Physician Assistant; Visit Provider Physician Assistant | DX: I10 Essential (primary) hypertension (principal); F98.8 Other specified behavioral and emotional disorders with onset usually occurring in childhood and adolescence; E78.5 Hyperlipidemia, unspecified; F41.1 Generalized anxiety disorder; M17.0 Bilateral primary osteoarthritis of knee; F33.1 Major depressive disorder, recurrent, moderate; Z79.899 Other long term (current) drug therapy; Z28.21 Immunization not carried out because of patient refusal | CPT/HCPCS: 90471; 96127 ==

== ENCOUNTER 2024-05-31 14:58 | Outpatient (AMB) | payer OTHER, SELFPAY ==
--- NOTE | 2024-05-31 15:11 | MHC.OFFVIS ---
Vital Signs 05/31/24 15:21 Height 5 ft 9 in Weight 207 lb BMI 30.6 Intake Visit Reasons: INJ- b/l knee, last injection 10/27/23 Intake Note: Taty 49 year old male who presents today for bilateral knee injections, last injection on 10/27/23. Patient reports injection provided him with relief until recently. He would like to repeat injections. He is requesting bilateral knee braces due to his being worn out. Allergies RY Inhibitors Allergy (Unknown, Verified 05/31/24 15:20) cough propranolol Allergy (Unknown, Verified 05/31/24 15:20) Unknown amlodipine Adverse Reaction (Unknown, Verified 05/31/24 15:20) flushing bupropion [Wellbutrin] Adverse Reaction (Unknown, Verified 05/31/24 15:20) headaches, SOB and wheezing ??? Increased anxiety HPI HPI INJ- b/l knee, last injection 10/27/23: Details: 49-year-old gentleman returns to the office today for bilateral knee pain. His previous extractions were in October which he states he had significant relief with. 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 Tenderness along the medial and lateral joint line. Full ROM with crepitus. Negative Laurent?s. No ligamentous laxity. NVI. Office Procedures AMB Joint Injection/Aspiration Joint Injection/Aspiration Primary Site: right knee Secondary Site: left knee Prep: site was prepped using aseptic technique, ethochloride spray was applied and injection warnings given Injected: 80 mg of, DepoMedrol, with 8 mL of and 1% plain lidocaine Approach Used: anterolateral Procedure: The patient tolerated the procedure well and there was some relief with the local anesthesia Coding 77324 - Glenohumeral/Tronchanteric Bursa/Intraarticular Procedure code (CPT) selection complete Assessment & Plan Assessment & Plan (1) Osteoarthritis of knees, bilateral: Code(s): M17.0 - Bilateral primary osteoarthritis of knee Category: Medical Qualifiers: Osteoarthritis type: primary Qualified Code(s): M17.0 - Bilateral primary osteoarthritis of knee Plan: We discussed options today, which include steroid injection. The patient did consent to move forward with the injection, which was tolerated well.? I recommended rest, ice and elevation and OTC antiinflammatories prn for discomfort. If symptoms persist over the next 6-8 weeks, they will contact our office, otherwise, prn He was also fit for a new knee braces in the office today Coding Level of Care Code Est Pt Level 3 (07435) Complex EM visit Add On G2211 Diagnoses Primary osteoarthritis of both knees M17.0 Osteoarthritis type: primary CPT Codes Coding - Joint 7: 85509 - Glenohumeral/Tronchanteric Bursa/Intraarticular ([id number])
[2024-05-31 15:21] VITALS: BMI 30.6
== END 2024-05-31 15:56 | disposition home or self-care (01) ==
PROVIDERS: PCP Physician Assistant; Visit Provider Physician Assistant
DX: M17.0 Bilateral primary osteoarthritis of knee (principal)
CPT/HCPCS: 20610; 99213

== ENCOUNTER → 2024-05-31 14:58 | Outpatient (BNVA) | payer OTHER, SELFPAY | PROVIDERS: PCP Physician Assistant; Visit Provider Physician Assistant | DX: M17.0 Bilateral primary osteoarthritis of knee (principal) | CPT/HCPCS: 20610; J1010; J2003 ==

== ENCOUNTER 2024-06-10 09:35 | Outpatient (REF) | payer OTHER, SELFPAY ==
[2024-06-10 10:04] LABS: Hematocrit 46.8 % (42.0-52.0); Hemoglobin 15.6 g/dl (14.0-18.0); Mean Corpuscular HGB Conc 33.3 g/dl (31.0-36.0); Mean Corpuscular Hemoglobin 29.2 pg (27.0-33.0); Mean Corpuscular Volume 87.6 fL (80.0-98.0); Mean Platelet Volume 8.6 fL (9.4-12.4); Platelet Count 277 X10*3/uL (160-400); Red Blood Count 5.34 X10*6/uL (4.60-5.80); White Blood Count 9.2 X10*3/uL (4.8-10.8)
[2024-06-10 10:25] LABS: Microalbum/Creatinine Ratio Ur 24.9 ug/mg cr (<30)
[2024-06-10 10:26] LABS: Alanine Aminotransferase 41 U/L (0-40); Albumin Level 4.3 g/dL (3.5-5.0); Alkaline Phosphatase 50 U/L (39-117); Anion Gap 14 (12-20); Aspartate Amino Transferase 37 U/L (5-37); Bilirubin Total 0.7 mg/dL (0.0-1.0); Blood Urea Nitrogen 20 mg/dL (9-16); Calcium 9.5 mg/dL (8.4-10.2); Carbon Dioxide 28 mmol/L (22-29); Chloride 102 mmol/L (96-108); Cholesterol 197 mg/dL (<200); Estimated Glomerular Filt Rate 59; Glucose Fasting 133 mg/dL (60-99); HDL Cholesterol 41 mg/dL (>40); LDL Cholesterol Calculated 118 mg/dL (<100); Potassium 4.4 mmol/L (3.3-5.1); Sodium 140 mmol/L (135-145); Triglycerides 194 mg/dL (<150)
== END 2024-06-10 09:36 | disposition home or self-care (01) ==
LOC: HO.LAB 09:35
PROVIDERS: PCP Physician Assistant; Visit Provider Physician Assistant
DX: I10 Essential (primary) hypertension (principal); E78.5 Hyperlipidemia, unspecified
CPT/HCPCS: 36415; 80053; 80061; 82043; 82570; 85027

== ENCOUNTER 2024-06-13 06:00 | Outpatient (REF) | payer OTHER, SELFPAY ==
[2024-06-13 07:43] LABS: Estimated Average Glucose 120 mg/dL; Hemoglobin A1C 151.4757 umol/L; Hemoglobin A1c % 5.8 % (<6.0); Total Hemoglobin (HGBA1C) 3764.7137 umol/L
== END 2024-06-13 06:01 | disposition home or self-care (01) ==
LOC: HO.LAB 06:00
PROVIDERS: PCP Physician Assistant; Visit Provider Physician Assistant
DX: R73.01 Impaired fasting glucose (principal)
CPT/HCPCS: 36415; 83036

== ENCOUNTER 2024-06-29 14:43 | Outpatient (AMB) | payer OTHER, SELFPAY ==
[2024-06-29 14:48] VITALS: BMI 30.9
--- NOTE | 2024-06-29 14:48 | A.OFFVIS_ITS ---
Vital Signs 06/29/24 14:48 Height 5 ft 9 in Weight 209 lb BMI 30.9 Intake Visit Reasons: 4M follow up Intake Note: patient presents for 4 month follow up. Allergies RY Inhibitors Allergy (Unknown, Verified 06/29/24 14:54) cough propranolol Allergy (Unknown, Verified 06/29/24 14:54) Unknown amlodipine Adverse Reaction (Unknown, Verified 06/29/24 14:54) flushing bupropion [Wellbutrin] Adverse Reaction (Unknown, Verified 06/29/24 14:54) headaches, SOB and wheezing ??? Increased anxiety Medication List - Last Reconciled 06/29/24 by SHANEKA Reno acetaminophen ER (Tylenol Arthritis Pain) 650 mg PO Q12H 30 days albuterol sulfate 90 mcg/actuation (Ventolin HFA) 1 inh inhalation QID PRN 30 days atorvastatin 20 mg PO DAILY 90 days azelaic acid 15% 1 appl topical BID 30 days blood pressure test kit-large As directed cholecalciferol (vitamin D3) 50 mcg PO DAILY 90 days clonazepam 1 mg PO BID 30 days dextroamphetamine-amphetamine 30 mg ER (Adderall XR) 30 mg PO QAM 30 days dextroamphetamine-amphetamine 5 mg (Adderall) 5 - 10 mg (1 - 2 x 5 mg) PO DAILY 30 days diclofenac sodium 75 mg PO BID 30 days hydrochlorothiazide 25 mg PO QAM leg brace (Knee Support Brace) Spider knee pad ( bilat knee ) losartan 100 mg PO DAILY magnesium oxide 400 mg PO BEDTIME 30 days oxycodone 5 mg PO Q8H 8 days safety needles (BD Eclipse Luer-Santino) once a week sildenafil 100 mg PO DAILY PRN 4 days telmisartan-hydrochlorothiazid 80-25 mg 1 tab PO DAILY 90 days testosterone cypionate 40 mg (0.4 mL) IM QWEEK 30 days testosterone cypionate mg IM zolpidem ER 12.5 mg PO BEDTIME PRN 30 days HPI Comments Details: 49-yr-old male presents for f/u visit for sleep. Pt denies any significant interval medical changes. He declined to have his blood pressure checked today, as he states his blood pressure is always high when comes to the doctor's. He does not believe his BP is high otherwise. He states he is compliant with his losartan and hydrochlorothiazide. Will Pt reports his sleep is the best it has been in many years with taking Melatonin 20mg gummies, zolpidem ER 12.5mg, Mag Ox 400mg. He is using his CPAP nightly, states he never sleeps great but he has slept worse . Pt reports he feels the Adderal Er 30mg does not seem to be helping him with daytime energy. He wonders if it is causing a reverse effect. He switched back to Adderall IR 5mg- 2 tabs qam and then 10mg prn q afternoon. He wonders if he can continue on the IR version at this point. He is still feels fatigue, poor focus, no energy, and flat. He notes that the symptoms occur even when he is on vacation and not working. His work is physically active. CPAP Compliance Report Usage 06/20/2023 - 07/19/2023: Usage days / days (87%) >= 4 hours Average usage (days used) 5 hours 32 minutes AirSense 10 AutoSet Serial number [id number] Mode AutoSet Min Pressure 8 cmH2O Max Pressure 16 cmH2O EPR Fulltime EPR level 2 Response Standard Therapy Pressure - Maximum: 10.9 Residual AHI: 0.8 per hour PFSH Medical History Patellofemoral arthritis Acne rosacea Tachycardia Hypogonadism male Hypertension Polyarthralgia Surgical History History of vasectomy Family History Father Medical history unknown Mother Hypertension Social History Housing: House Alcohol intake: never Patient Tobacco Use Status: Former Tobacco user Tobacco use type: Cigarette e-Cigarette/Vaping Use: Never Used Second Hand Smoke Exposure: No service: No Current occupational status: employed 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 Current occupational exposures/hazards: No Cognitive needs: No Hearing needs: No Vision needs: No Physical Exam Vital Signs: BMI result Body Mass Index 30.9 Const General: cooperative and no acute distress Orientation/consciousness: patient oriented x3 Resp Effort & Inspection: normal respiratory effort and able to speak in complete sentences Neuro General: patient oriented x3, gait normal and CN's II-XI intact bilaterally Cognition (Neuro): normal cognition Motor exam (neuro): 5/5 motor strength present throughout Psych Appearance: grossly normal Mental Status: mental status grossly normal Speech and movement: Normal speech and movement present Affect: normal affect Attitude: cooperative Thought process: Normal thought process present Assessment & Plan Assessment & Plan (1) Hypersomnia with sleep apnea: Code(s): G47.10 - Hypersomnia, unspecified; G47.30 - Sleep apnea, unspecified Category: Medical (2) Obstructive sleep apnea: Comment: severe. AHI 26.4/hr w/ O2 perry 79% Code(s): G47.33 - Obstructive sleep apnea (adult) (pediatric) Category: Medical (3) HTN (hypertension): Code(s): I10 - Essential (primary) hypertension Category: Medical Qualifiers: Hypertension type: essential hypertension Qualified Code(s): I10 - Essential (primary) hypertension (4) ADD (attention deficit disorder): Code(s): F98.8 - Other specified behavioral and emotional disorders with onset usually occurring in childhood and adolescence Category: Medical Qualifiers: Hyperactivity presence: absent Qualified Code(s): F98.8 - Other specified behavioral and emotional disorders with onset usually occurring in childhood and adolescence Plan For sleep promotion: Continue APAP 8-16 cm H2O w/ EPR 2. Clean and change CPAP supplies routinely. Use distilled water in CPAP water reservoir. Continue zolpidem ER 12.5 mg p.o. q.h.s. Previous trials: Amitriptyline 10 mg-not tolerated. Mirtazapine 7.5-22.5 mg-at lower dose ineffective for sleep, at higher dose patient felt caused HLD. For residual hypersomnia despite therapeutic CPAP usage: Will request overnight pulse oximetry x1 night on CPAP and room air to ensure no residual nocturnal hypoxemia with CPAP use. Will request nephrology consult for evaluation for 24 hour blood pressure monitor, to determine the pattern of hypertension. As there are alternate tr eatments for excessive daytime sleepiness in [facility], such as [place], however this cannot be used in uncontrolled hypertension. Discontinue Adderall ER 30mg qam. Resume Adderall IR 10mg tid Previous trials- Modafinil 200mg- caused CABA. Wellbutrin- caused worsening of facial redness. f/u in 4 months or sooner prn. Orders: Orders Overnight Pulse Oximetry 06/29/24 G47.33 - Obstructive sleep apnea (adult) (pediatric), G47.34 - Idiopathic sleep related nonobstructive alveolar hypoventilation, G47.10 - Hypersomnia, unspecified, G47.30 - Sleep apnea, unspecified Coding Level of Care Code Est Pt Level 4 (26389) Diagnoses Hypersomnia with sleep apnea G47.10; G47.30 Obstructive sleep apnea G47.33 Essential hypertension I10 Hypertension type: essential hypertension Attention deficit disorder (ADD) without hyperactivity F98.8 Hyperactivity presence: absent
== END 2024-06-29 15:56 | disposition home or self-care (01) ==
PROVIDERS: PCP Physician Assistant; Visit Provider Nurse Practitioner Family
DX: G47.10 Hypersomnia, unspecified (principal); G47.30 Sleep apnea, unspecified; G47.33 Obstructive sleep apnea (adult) (pediatric); I10 Essential (primary) hypertension; F98.8 Other specified behavioral and emotional disorders with onset usually occurring in childhood and adolescence
CPT/HCPCS: 99214

== ENCOUNTER 2024-07-27 15:00 | Outpatient (AMB) | payer OTHER, SELFPAY ==
--- NOTE | 2024-07-27 15:06 | HO.NEPHOV_ITS ---
Vital Signs 07/27/24 15:07 07/27/24 15:22 Height 5 ft 9 in Weight 201 lb BMI 29.7 BP 132/84 120/80 Blood Pressure Location Lt brachial Lt brachial Position Sitting Sitting Pulse 102 H Pulse Source Pulse Oximeter Pulse Oximetry (%) 99 Oxygen Delivery Method Room Air Intake Visit Reasons: INP: Hypertension-Conf Environmental Journalist Required: No Accompanied by: Self / Same As Patient Allergies RY Inhibitors Allergy (Unknown, Verified 07/27/24 15:08) cough propranolol Allergy (Unknown, Verified 07/27/24 15:08) Unknown amlodipine Adverse Reaction (Unknown, Verified 07/27/24 15:08) flushing bupropion [Wellbutrin] Adverse Reaction (Unknown, Verified 07/27/24 15:08) headaches, SOB and wheezing ??? Increased anxiety Medication List - Last Reconciled 07/27/24 by Gilson Cantrell MD acetaminophen ER (Tylenol Arthritis Pain) 650 mg PO Q12H 30 days albuterol sulfate 90 mcg/actuation (Ventolin HFA) 1 inh inhalation QID PRN 30 days atorvastatin 20 mg PO DAILY 90 days azelaic acid 15% 1 appl topical BID 30 days blood pressure test kit-large As directed cholecalciferol (vitamin D3) 50 mcg PO DAILY 90 days clonazepam 1 mg PO BID 30 days dextroamphetamine-amphetamine 10 mg (Adderall) 10 mg PO TID 30 days diclofenac sodium 75 mg PO BID 30 days hydrochlorothiazide 25 mg PO QAM leg brace (Knee Support Brace) Spider knee pad ( bilat knee ) losartan 100 mg PO DAILY magnesium oxide 400 mg PO BEDTIME 30 days oxycodone 5 mg PO Q8H 8 days safety needles (BD Eclipse Luer-Santino) once a week sildenafil 100 mg PO DAILY PRN 4 days telmisartan-hydrochlorothiazid 80-25 mg 1 tab PO DAILY 90 days testosterone cypionate 40 mg (0.4 mL) IM QWEEK 30 days testosterone cypionate mg IM zolpidem ER 12.5 mg PO BEDTIME PRN 30 days HPI Comments Details: Brian is a pleasant 49 man with a history of longstanding hypertension. He was diagnosed with hypertension in his mid 20s. Since then he has been on antihypertensive medications. Currently he is on losartan 100 mg and hydrochlorothiazide 25 mg. Even though blood pressure is better controlled diabetes episodes when his blood pressure has been spiking. He is taking Adderall. He also takes testosterone. Hypertension was diagnosed even before starting these medications. 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 He has been monitoring his blood pressure at home and usually blood pressure is well controlled at home with the episodes of spikes. Every time he goes to the [employer] examination his blood pressure spikes up. Of note he has been taking diclofenac twice a day for a long time. 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 Lungs entry equal no rales. Heart S1-S2 heard no gallop or rub. Abdomen soft nontender. Neuro alert awake oriented. No asterixis. Extremities no edema. Results Reviewed Nephrology Results: Hgb 15.6 g/dl (14.0-18.0) 06/10/24 WBC 9.2 X10*3/uL (4.8-10.8) 06/10/24 Plt Count 277 X10*3/uL (160-400) 06/10/24 Sodium 140 mmol/L (135-145) 06/10/24 Potassium 4.4 mmol/L (3.3-5.1) 06/10/24 Chloride 102 mmol/L (96-108) 06/10/24 Carbon Dioxide 28 mmol/L (22-29) 06/10/24 BUN 20 mg/dL (9-16) H 06/10/24 Creatinine 1.29 mg/dL (0.5-1.4) 06/10/24 Calcium 9.5 mg/dL (8.4-10.2) 06/10/24 Urine Creatinine 148.30 mg/dL 06/10/24 Assessment & Plan Assessment & Plan (1) HTN (hypertension): Code(s): I10 - Essential (primary) hypertension Category: Medical Qualifiers: Hypertension type: essential hypertension Qualified Code(s): I10 - Ess ential (primary) hypertension Plan Young man with hypertension. At this time blood pressure is well controlled. I believe he has a component of white coat effect. This spikes in the blood pressure may be related to the use of Adderall or testosterone or both. First step would be to obtain a 24 hour ambulatory blood pressure monitoring. I will arrange for the same. In the meantime encouraged him to stay on low-sodium diet. Increase fluid intake. He should avoid taking excessive amounts of NSAIDs especially in combination with losartan hydrochlorothiazide. He is at higher risk of renal injury. The recent creatinine has been around 1.2-1.3 mg/dL which is probably his baseline. Urinalysis was benign without any significant RBCs or protein. Medications: Discontinued telmisartan-hydrochlorothiazid 80-25 mg Discontinued Reason: Patient no longer taking 1 tab PO DAILY 90 days 90 tabs 0RF I10 - Essential (primary) hypertension Scribe Plan - Not visible on output: htn at 25 old Coding Level of Care Code New Pt Level 4 (11800) Diagnoses Essential hypertension I10 Hypertension type: essential hypertension
[2024-07-27 15:07] VITALS: BP 132/84; PULSE 102; O2SAT 99; BMI 29.7
[2024-07-27 15:22] VITALS: BP 120/80
== END 2024-07-27 15:30 | disposition home or self-care (01) ==
PROVIDERS: PCP Physician Assistant; Visit Provider Internal Medicine Hypertension Specialist
DX: I10 Essential (primary) hypertension (principal)
CPT/HCPCS: 99204

== ENCOUNTER 2024-11-06 14:23 | Outpatient (AMB) | payer OTHER, SELFPAY ==
--- NOTE | 2024-11-06 14:26 | A.OFFPC_ITS ---
Vital Signs 11/06/24 14:28 Height 5 ft 9 in Weight 187 lb 8 oz BMI 27.7 BP 120/70 Blood Pressure Location Lt brachial Position Sitting Pulse 117 H Pulse Source Pulse Oximeter Temp 97.8 F Temp Source Temporal Artery Scan Pulse Oximetry (%) 97 Oxygen Delivery Method Room Air Intake Visit Reasons: annual exam Intake Note: Patient is here today for a physical. 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 Required: No Cardiac Cath Lab Radiology Technologist: Not Required per policy Accompanied by: Self / Same As Patient Allergies propranolol Allergy (Unknown, Verified 11/09/24 08:14) Unknown RY Inhibitors Adverse Reaction (Intermediate, Verified 11/09/24 08:14) cough amlodipine Adverse Reaction (Intermediate, Verified 11/09/24 08:14) flushing bupropion [Wellbutrin] Adverse Reaction (Intermediate, Verified 11/09/24 08:14) headaches/SOB and wheezing/Increased anxiety Medication List - Last Reconciled 11/06/24 by Sal Ferrell PA-C acetaminophen ER (Tylenol Arthritis Pain) 650 mg PO Q12H 30 days albuterol sulfate 90 mcg/actuation (Ventolin HFA) 1 inh inhalation QID PRN 30 days atorvastatin 20 mg PO DAILY 90 days azelaic acid 15% 1 appl topical BID 30 days bisacodyl (Dulcolax (bisacodyl)) 20 mg (4 x 5 mg) PO ONCE 1 day blood pressure test kit-large As directed cholecalciferol (vitamin D3) 50 mcg PO DAILY 90 days clonazepam 1 mg PO BID 30 days dextroamphetamine-amphetamine 10 mg (Adderall) 10 mg PO TID 30 days diclofenac sodium 75 mg PO BID 30 days hydrochlorothiazide 25 mg PO QAM leg brace (Knee Support Brace) Spider knee pad ( bilat knee ) losartan 100 mg PO DAILY magnesium oxide 400 mg PO BEDTIME 30 days oxycodone 5 mg PO Q8H 8 days polyethylene glycol 3350 (Miralax) 238 grams PO ONCE 1 day safety needles (BD Eclipse Luer-Santino) once a week sildenafil 100 mg PO DAILY PRN 4 days testosterone cypionate 40 mg (0.4 mL) IM QWEEK 30 days testosterone cypionate mg IM zolpidem ER 12.5 mg PO BEDTIME PRN 30 days Tobacco use date assessed: 11/06/24 Dental Screening Dental Screen Date: 11/06/24 Did you have a dental visit in the last 12 months?: Yes Did you have a dental problem in the last 6 months where you did not have access to dental care?: No Was dental information given to patient?: Patient has dentist HPI annual exam HPI Details Patient is a 49-year-old male here today FOR ROUTINE ANNUAL PHYSICAL .? Patient has a past medical history si gnificant for hypertension, obstructive sleep apnea, generalized anxiety disorder, hyperlipidemia, polyarthralgia .. ADD: Now continues on Adderall 20 mg extended release and 15 mg immediate release in the afternoons. He does report good effect from the Adderall on reducing his depression and increasing his mood. .. 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 Steroid injections previously offered limited relief, but scheduling challenges left intervals between treatments unpredictably extended. Both knees exhibit instability and swelling, consistent with underlying bursitis, according to prior imaging. Concerns around continued diclofenac use for chronic pain management have been raised, particularly regarding potential renal implications. This treatment regimen is becoming less effective, especially as nocturnal pain aggravates insomnia. HTN:? Patient's blood pressure acceptable today in office on both losartan and hydrochlorothiazide.. Of note on daily NSAID (diclofenac). He has followed up with Nephrology whom recommended 24 hour blood pressure monitor? Denies any headaches, chest discomforts or shortness of breath. .. hyperLipidemia:? Continues on statin therapy without any side effect.? Most recent lipid panel acceptable. .. Obstructive sleep apnea:? Has seen neurologist and was started on CPAP machine for sleep and has been compliant.? Also increased his mirtazapine to 30 mg.? Unfortunately has not helped him with his daytime somnolence.. .. Major depressive disorder:? Depression has been reported as better since starting Adderall..? .. Hypogonadism:?Now seeing Urology at ([facility]) in [place] whom is managing his IM testosterone ? Has followed up with a urologist whom he reports will be taking over his testosterone therapy.? He reports most recent testosterone level at a 1000 though they would like him to be more around 700 . ?vaccine: up-to-date with COVID vaccine, up-to-date with tetanus colorectal cancer screening: Has upcoming appt for colonoscopy. 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 1. Little interest or pleasure in doing things: several days 2. Feeling down, depressed, or hopeless: several days 3. Trouble falling or staying asleep, or sleeping too much: several days 4. Feeling tired or having little energy: several days 5. Poor appetite or overeating: several days 6. Feeling bad about yourself - or that you are a failure or have let yourself or your family down: not at all 7. Trouble concentrating on things, such as reading the newspaper or watching television: several days 8. Moving or speaking so slowly that other people could have noticed. Or the opposite - being so fidgety or restless that you have been moving around a lot more than usual: not at all 9. Thoughts that you would be better off or of hurting yourself in some way: not at all Total score: 6 Depression Screening Interpretation: Positive Depression Screening Follow-up: Existing condition and In treatment Depression Screening Done: Yes 90058 - PHQ-9 Billing: Yes Source: Developed by Drs. Shady Blunt, Amber Pope, Pablo Bardales and colleagues, with an educational jacquie from [employer]. Thrive Questionnaire Date Thrive assessed: 11/06/24 I am a: Patient What is your living situation today?: I have a steady place to live Within the past 12 months, did the food you bought not last and you didn't have the money to get more?: Never true Within the past 12 months, did you worry whether your food would run out before you got money to buy more?: Never true Do you have trouble paying for medicines?: No Do you have trouble getting transportation to medical appointments?: No Do you have trouble paying your heating and electricity bill?: No Do you have trouble taking care of your child, family member or friend?: No Do you have trouble with day-to-day activities such as bathing, preparing meals, shopping, managing finances, etc.?: No Are you currently unemployed and looking for a job?: No Are you interested in more education?: No Please select the resources that you would like help with: None Currently or been in a relationship where the following occur: No concerns reported THRIVE Score: 0 AUDIT C Alcohol Use Questionnaire (AUDIT-C) 1. How often do you have a drink containing alcohol?: Never Total Score: 0 ALVAREZ-7 AMB Questionnaire ALVAREZ-7 Date ALVAREZ - 7 assessed: 11/06/24 Feeling nervous, anxious, or on edge: 1 = Several days Not being able to stop or control worryin = Several days Worrying too much about different things: 1 = Several days Trouble relaxin = Several days Being so restless that it is hard to sit still: 1 = Several days Becoming easily annoyed or irritable: 1 = Several days Feeling afraid as if something awful might happen: 0 = Not at all Total ALVAREZ-7 score (0-4 normal; 5-9 mild; 10-14 moderate; 15-21 severe): 6 Source: Developed by Drs. Shady Blunt, Amber Pope, Pablo Bardales and colleagues, with an educational jacquie from [employer]. ALVAREZ-7 Assessment Billing ALVAREZ-7 Assessment Tool: ALVAREZ-7 Assessment 62042 Review of Systems Const Denies body aches, Denies chills, Denies excessive sweating, Denies fatigue, Denies fever(s) and Denies headache(s) Eyes Denies blurry vision ENT Denies dysphagia, Denies vertigo, Denies dizziness, Denies headache(s), Denies hearing loss and Denies tinnitus Card Denies chest pain, Denies chest pain with activity, Denies syncope, Denies irregular heart rhythm and Denies dyspnea Resp Denies chest congestion, Denies cough, Denies hemoptysis, Denies dyspnea and Denies wheezing GI Denies abdominal pain, Denies melena, Denies hematochezia, Denies coffee ground emesis, Denies dysphagia, Denies diarrhea, Denies nausea and Denies vomiting Denies difficulty urinating, Denies dysuria, Denies urinary frequency, Denies urinary hesitancy and Denies urinary urgency Musc Denies arthralgias, Denies limited range of motion, Denies muscle cramps and Denies muscle weakness Skin/Breast Denies rash and Denies skin ulcer Neuro Denies Abnormal speech present, Denies confusion, Denies vertigo, Denies dizziness, Denies syncope, Denies headache(s), Denies memory loss and Denies seizure-like activity Psych Denies anxiety, Denies confusion, Denies depression, Denies memory loss, Denies panic attacks and Denies paranoia Endo Denies excessive sweating, Denies fatigue, Denies flushing, Denies polydipsia and Denies polyuria Conrado/Lymph Denies easy bleeding and Denies easy bruising Aller/Immun Denies wheezing Physical exam (Primary Care) Vital Signs: Last Vital Signs Temp 97.8 F 11/06/24 14:28 Pulse 117 H 11/06/24 14:28 BP 120/70 11/06/24 14:28 Pulse Ox 97 11/06/24 14:28 Oxygen Delivery Method Room Air 11/06/24 14:28 BMI result Body Mass Index 27.7 Tobacco/Smoking Status: Tobacco use Status Tobacco use date assessed 11/06/24 11/06/24 14:32 Patient Tobacco Use Status Former Tobacco user 11/06/24 14:32 Tobacco use type Cigarette 11/06/24 14:32 e-Cigarette/Vaping Use Never Used 11/06/24 14:32 PHQ-9: PHQ-9 Score PHQ-9: Total score 6 11/07/24 08:27 Depression Screening Interpretation: Positive Depression Screening Follow-up: Existing condition and In treatment Thrive Assessment: Date of Thrive Assessment Date Thrive assessed 11/06/24 11/06/24 14:32 Currently or been in a relationship where the following occur: No concerns reported Const General: cooperative, comfortable, no acute distress, alert and awake; No confusion Nutritional Appearance: well nourished Orientation/consciousness: oriented to person, oriented to place, patient oriented x3 and No confusion HENMT Head: Yes normocephalic Ears: external ears normal and TM's normal bilaterally General nose exam: Normal nasal mucous membranes and turbinates present Face and sinus: No sinus tenderness Mouth: Normal oral and palatal mucosa present and tongue normal Teeth and gingiva: dentition normal and gingiva normal Throat: Yes posterior oropharynx normal, Yes tonsils normal and Yes uvula midline Eyes Conjunctivae: conjunctivae normal Sclerae: sclerae normal Pupils: Equal, round and reactive pupils present EOM: EOMs intact bilaterally Direct Ophthalmoscopy: No no photophobia Neck Neck: Yes no lymphadenopathy, No tender and Yes no JVD Thyroid: Thyroid normal Carotids: no bruits Chest Chest palpation & inspection: no tenderness Resp Effort & Inspection: normal respiratory effort, no audible wheezes, not labored and no stridor Auscultation: no crackles, no rales, no rhonchi and no wheezes Cardio Jugular venous distension: no JVD Rate: regular rate, not bradycardic and not tachycardic Rhythm: regular rhythm Heart sounds: no murmurs and normal S1 and S2 Bruits: no carotid bruits Peripheral pulses: Peripheral pulses 2+ throughout GI Inspection: Yes normal to inspection, No abdominal wall ecchymosis and No visible herniation Palpation (GI): Soft to palpation, nontender, no guarding, not rigid and No hepatosplenomegaly present Auscultation: normoactive bowel sounds General: Yes no CVA tenderness Back/Spine/Pelvis Back: no CVA tenderness and No back tenderness Cervical Spine: cervical ROM normal Thoracic/Lumbar Spine: thoracic and lumbar spine normal to inspection, straight leg raise negative bilaterally, No thoraco-lumbar ROM limited and No lumbar spinal tenderness Skin General skin exam: no rashes or lesions noted and dry skin Lesions: no lesions Rashes: no rashes Wounds: no wounds Neuro General: oriented to person, oriented to place, patient oriented x3, CN's II-XI intact bilaterally and No confusion Cranial nerves: Yes Equal, round and reactive pupils present and Yes Normal accommodation reflex present Cognition (Neuro): normal cognition Speech: No Abnormal speech present Gait exam (Neuro): Normal gait present Motor exam (neuro): 5/5 motor strength present throughout Extrem Right upper extremity: full ROM; no cyanosis Left upper extremity: full ROM; no cyanosis Right lower extremity: no edema Left lower extremity: no edema Psych Appearance: grossly normal Mental Status: mental status grossly normal Speech and movement: Normal speech and movement present Affect: normal affect Attitude: cooperative Thought process: Normal thought process present Coding Level of Care Code Est Pt Prev Care 40-64y(72402) Diagnoses Annual physical exam Z00.00 Primary osteoarthritis of both knees M17.0 Osteoarthritis type: primary Essential hypertension I10 Hypertension type: essential hypertension Hyperlipidemia, unspecified hyperlipidemia type E78.5 Hyperlipidemia type: unspecified Additional Codes ALVAREZ-7 Assessment Billing - ALVAREZ-7 Assessment Tool: ALVAREZ-7 Assessment 31113 ([id number]) PHQ-9 - 19446 - PHQ-9 Billing: Yes ([id number]) Assessment & Plan Assessment & Plan (1) Annual physical exam: Code(s): Z00.00 - Encounter for general adult medical examination without abnormal findings Category: Medical Plan: As per HPI (2) Osteoarthritis of knees, bilateral: Code(s): M17.0 - Bilateral primary osteoarthritis of knee Category: Medical Qualifiers: Osteoarthritis type: primary Qualified Code(s): M17.0 - Bilateral primary osteoarthritis of knee Plan: Recommend braces and prescribed steroid injections; prednisone for acute exacerbation if indicated. For now will try to wean off of NSAID due to fears of renal complications. He does use low-dose oxycodone on a p.r.n. basis. He is awaiting upcoming appointment with Orthopedics for an injection which he does report some limited relief in his knee pain. We did discuss his physically demanding job which is likely causing his bilateral knee pain to worsen. He reports he can not get a new job at this time due to financial restraints (3) HTN (hypertension): Code(s): I10 - Essential (primary) hypertension Category: Medical Qualifiers: Hypertension type: essential hypertension Qualified Code(s): I10 - Essential (primary) hypertension Plan: Patient's blood pressure acceptable today in office. Will continue his losartan and hydrochlorothiazide. Has followed up with Nephrology about his blood pressure whom recommended 24 hour blood pressure monitoring. Goal blood pressures to remain below 140/90 (4) HLD (hyperlipidemia): Code(s): E78.5 - Hyperlipidemia, unspecified Category: Medical Qualifiers: Hyperlipidemia type: unspecified Qualified Code(s): E78.5 - Hyperlipidemia, unspecified Plan: Patient's most recent lipid panel showing good control of his total cholesterol and LDL. He continues with the use of atorvastatin 20 mg. Goal LDL is to remain below 130 Orders: Orders Lipid Panel 11/06/24 E78.5 - Hyperlipidemia, unspecified Complete Blood Count no Diff 11/06/24 I10 - Essential (primary) hypertension Comprehensive [place]. Panel Fast 11/06/24 R73.01 - Impaired fasting glucose Hemoglobin A1c 11/06/24 R73.01 - Impaired fasting glucose Microalbumin, Random (w Creat) 11/06/24 I10 - Essential (primary) hypertension Medications: New prednisone 20 mg PO 3XW 12 tabs 0RF 4 weeks M70.51 - Other bursitis of knee, right knee, M70.52 - Other bursitis of knee, left knee
[2024-11-06 14:28] VITALS: BP 120/70; PULSE 117; TEMP 36.6; O2SAT 97; BMI 27.7
== END 2024-11-06 15:51 | disposition home or self-care (01) ==
LOC: HO.HMCH 14:24
PROVIDERS: PCP Physician Assistant; Visit Provider Physician Assistant
DX: Z00.00 Encounter for general adult medical examination without abnormal findings (principal); M17.0 Bilateral primary osteoarthritis of knee; I10 Essential (primary) hypertension; E78.5 Hyperlipidemia, unspecified

== ENCOUNTER → 2024-11-06 14:23 | Outpatient (BNVA) | payer OTHER, SELFPAY | PROVIDERS: PCP Physician Assistant; Visit Provider Physician Assistant | DX: Z00.00 Encounter for general adult medical examination without abnormal findings (principal); M17.0 Bilateral primary osteoarthritis of knee; I10 Essential (primary) hypertension; E78.5 Hyperlipidemia, unspecified; Z79.899 Other long term (current) drug therapy | CPT/HCPCS: 96127 ==

== ENCOUNTER 2024-11-09 07:44 | Outpatient (AMB) | payer OTHER, SELFPAY ==
--- NOTE | 2024-11-09 08:12 | MHC.OFFVIS ---
Vital Signs 11/09/24 08:13 Height 5 ft 9 in Weight 191 lb BMI 28.2 BP 130/80 Blood Pressure Location Lt brachial Pulse 101 H Pulse Source Pulse Oximeter Pulse Oximetry (%) 100 Oxygen Delivery Method Room Air Intake Visit Reasons: 4 mo follow up Intake Note: Patient presents 4 month follow up for sleep. Compliance in chart. 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: No Accompanied by: Self / Same As Patient Allergies propranolol Allergy (Unknown, Verified 11/09/24 08:14) Unknown RY Inhibitors Adverse Reaction (Intermediate, Verified 11/09/24 08:14) cough amlodipine Adverse Reaction (Intermediate, Verified 11/09/24 08:14) flushing bupropion [Wellbutrin] Adverse Reaction (Intermediate, Verified 11/09/24 08:14) headaches/SOB and wheezing/Increased anxiety Medication List - Last Reconciled 11/09/24 by SHANEKA Reno acetaminophen ER (Tylenol Arthritis Pain) 650 mg PO Q12H 30 days albuterol sulfate 90 mcg/actuation (Ventolin HFA) 1 inh inhalation QID PRN 30 days atorvastatin 20 mg PO DAILY 90 days azelaic acid 15% 1 appl topical BID 30 days bisacodyl (Dulcolax (bisacodyl)) 20 mg (4 x 5 mg) PO ONCE 1 day blood pressure test kit-large As directed cholecalciferol (vitamin D3) 50 mcg PO DAILY 90 days clonazepam 1 mg PO BID 30 days dextroamphetamine-amphetamine 10 mg (Adderall) 10 mg PO TID 30 days diclofenac sodium 75 mg PO BID 30 days hydrochlorothiazide 25 mg PO QAM leg brace (Knee Support Brace) Spider knee pad ( bilat knee ) losartan 100 mg PO DAILY magnesium oxide 400 mg PO BEDTIME 30 days oxycodone 5 mg PO Q8H 8 days polyethylene glycol 3350 (Miralax) 238 grams PO ONCE 1 day prednisone 20 mg PO 3XW 4 weeks safety needles (BD Eclipse Luer-Santino) once a week sildenafil 100 mg PO DAILY PRN 4 days solriamfetol (Sunosi) 37.5mg daily x's 1 week, then 75mg daily orally daily; 30 days testosterone cypionate 40 mg (0.4 mL) IM QWEEK 30 days testosterone cypionate mg IM zolpidem ER 12.5 mg PO BEDTIME PRN 30 days HPI Comments Details: 49-yr-old male presents for f/u visit for sleep. Pt denies any significant interval medical changes. Pt has seen nephrology- states he did not have the 24 hr BP monitor yet. However, his blood pressure has been better. He states this is probably because he is going through a divorce. 08/27/2024 overnight pulse oximetry study while on APAP in room air, showed resolution of oxygen desaturations while on PAP therapy, with SpO2 greater than 90% or 98.9% of study time, and SpO2 below 88% for only 0.1% of study time- with O2 perry 85%. Pt reports his sleep is better with taking Melatonin 20mg gummies, zolpidem ER 12.5mg, Mag Ox 400mg. Has not needed to take clonazepam and quite some time. He is using his CPAP nightly, however even with consistent CPAP use and taking Adderall throughout the day, he continues to have excessive daytime tiredness, show thank you fatigue, poor focus, poor energy, and feeling flat- especially in the afternoon. He notes that the symptoms occur even when he is on vacation and not working. He is using Adderall 10 mg IR- up to 1 tab 3 times a day. 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 Generally, he states that he can no stay sitting for long, otherwise he will doze off. CPAP Compliance Report Usage 08/04/2024 - 11/01/2024 Overall usage 88% Usage greater than 4 hours 82% Average usage (days used) 5 hours 54 minutes AirSense 10 AutoSet Serial number [id number] APAP 8-16 cmH2O EPR 2 Maximum pressure 11.3 cm H2O Average leaks 1.6 L/min Residual AHI: 1.4 per hour [facility] Medical History Anxiety Depression ADD (attention deficit disorder) Sleep apnea Asthma Patellofemoral arthritis Acne rosacea Tachycardia Hypogonadism male Hypertension Polyarthralgia Surgical History History of vasectomy Family History Father Medical history unknown Mother Hypertension Social History Housing: House Alcohol intake: never Patient Tobacco Use Status: Former Tobacco user Tobacco use type: Cigarette e-Cigarette/Vaping Use: Never Used Second Hand Smoke Exposure: Yes service: No Current occupational status: employed 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 Current occupational exposures/hazards: No Cognitive needs: No Hearing needs: No Vision needs: No Physical Exam Vital Signs: Last Vital Signs Pulse 101 H 11/09/24 08:13 BP 130/80 11/09/24 08:13 Pulse Ox 100 11/09/24 08:13 Oxygen Delivery Method Room Air 11/09/24 08:13 BMI result Body Mass Index 28.2 Const General: cooperative and no acute distress Orientation/consciousness: patient oriented x3 Resp Effort & Inspection: normal respiratory effort and able to speak in complete sentences Neuro General: patient oriented x3, gait normal and CN's II-XI intact bilaterally Cognition (Neuro): normal cognition Motor exam (neuro): 5/5 motor strength present throughout Psych Appearance: grossly normal Mental Status: mental status grossly normal Speech and movement: Normal speech and movement present Affect: normal affect Attitude: cooperative Thought process: Normal thought process present Assessment & Plan Assessment & Plan (1) Hypersomnia with sleep apnea: Code(s): G47.10 - Hypersomnia, unspecified; G47.30 - Sleep apnea, unspecified Category: Medical (2) Obstructive sleep apnea: Comment: severe. AHI 26.4/hr w/ O2 perry 79% Code(s): G47.33 - Obstructive sleep apnea (adult) (pediatric) Category: Medical (3) ADD (attention deficit disorder): Code(s): F98.8 - Other specified behavioral and emotional disorders with onset usually occurring in childhood and adolescence Category: Medical Qualifiers: Hyperactivity presence: absent Qualified Code(s): F98.8 - Other specified behavioral and emotional disorders with onset usually occurring in childhood and adolescence Plan For sleep promotion: Continue APAP 8-16 cm H2O w/ EPR 2. Clean and change CPAP supplies routinely. Use distilled water in CPAP water reservoir. Continue zolpidem ER 12.5 mg p.o. q.h.s. Previous trials: Amitriptyline 10 mg-not tolerated. Mirtazapine 7.5-22.5 mg-at lower dose ineffective for sleep, at higher dose patient felt caused HLD. For residual hypersomnia despite therapeutic CPAP usage: Reviewed overnight pulse oximetry study- Pap therapy is effectively controlling nocturnal hypoxemia. Continue Adderall IR 10mg tid Trial Sunosi 37.5 mg daily x1 week then 75 mg daily- as patient continues to experience significant excessive daytime sleepiness despite optimal PAP therapy usage and usage of Adderall, and BP is much better controlled. Reviewed common side effects including but not limited to hypertension. Patient advised to routinely monitor his blood pressure after starting Sunosi. Previous trials- Modafinil 200mg- caused CABA. Wellbutrin- caused worsening of facial redness. Adderall ER- not well tolerated. f/u in 4-6 months or sooner prn. Medications: New solriamfetol (Sunosi) 37.5mg daily x's 1 week, then 75mg daily orally daily; 30 days 30 tabs 3RF Refilled zolpidem ER 12.5 mg PO BEDTIME 30 days PRN 30 tabs 3RF insomnia dextroamphetamine-amphetamine 10 mg (Adderall) administer doses at least 4-6 hours apart; Partial Fill upon patient request. 10 mg PO TID 30 days 90 tabs 0RF Coding Level of Care Code Est Pt Level 4 (84924) Diagnoses Hypersomnia with sleep apnea G47.10; G47.30 Obstructive sleep apnea G47.33 Attention deficit disorder (ADD) without hyperactivity F98.8 Hyperactivity presence: absent [place] Sleepiness Scale Questions Sitting and reading: high chance of dozing Watching TV: high chance of dozing Sitting inactive in a theater, movie etc.: moderate chance of dozing As a passenger in a car for an hour without break: high chance of dozing Lying down in the afternoon when circumstances permit: high chance of dozing Sitting and talking to someone: would never doze Sitting quietly after lunch without alcohol: high chance of dozing In a car, while stopped for a few minutes in the traffic: would never doze ESS < 10: normal, ESS > 12: pathologic: 17
[2024-11-09 08:13] VITALS: BP 130/80; PULSE 101; O2SAT 100; BMI 28.2
== END 2024-11-09 08:57 | disposition home or self-care (01) ==
LOC: HO.HSMS 07:45
PROVIDERS: PCP Physician Assistant; Visit Provider Nurse Practitioner Family
DX: G47.10 Hypersomnia, unspecified (principal); G47.30 Sleep apnea, unspecified; G47.33 Obstructive sleep apnea (adult) (pediatric); F98.8 Other specified behavioral and emotional disorders with onset usually occurring in childhood and adolescence
CPT/HCPCS: 99214

== ENCOUNTER → 2024-11-09 07:44 | Outpatient (BNVA) | payer OTHER, SELFPAY | PROVIDERS: PCP Physician Assistant; Visit Provider Nurse Practitioner Family ==

== ENCOUNTER 2025-01-01 09:02 | Day surgery (SDC) | payer OTHER, SELFPAY ==
[2025-01-01 07:38] VITALS: BMI 28.1
[2025-01-01 09:42] VITALS: BP 116/74; PULSE 96; RESP 20; TEMP 36.2; O2SAT 97; BMI 26.6
[2025-01-01] MEDS: Lactated Ringers 1,000 ML 50 ML IVCONT (10:07)
--- NOTE | 2025-01-01 10:29 | MHC.SHP ---
Pre-Procedural Eval Section A - 24 Hr Update-Section A only Date of Service: 01/01/25 The patient is an INPATIENT: No The patient has been examined within 24 hours of the surgical procedure. The History & Physical has been completed within 30 days and I have reviewed it.: No Section B - Complete if H&P > 30 days Chief Complaint: Colon cancer screening Relevant Family History (Specify if Yes): No Relevant Social History: Tobacco Use (Former smoker) Present Medications: see Short Stay Collaborative assessment Medical History: Significant History (Hypertension Hypogonadism male) History of Previous Operations: Relevant previous surgery/procedure and date(s) (History of vasectomy) Allergies: Allergies Allergy/AdvReac Type Severity Reaction Status Date / Time propranolol Allergy Unknown Unknown Verified 11/09/24 08:14 RY Inhibitors AdvReac Intermediate cough Verified 11/09/24 08:14 amlodipine AdvReac Intermediate flushing Verified 11/09/24 08:14 bupropion (Wellbutrin) AdvReac Intermediate headaches/SOB Verified 11/09/24 08:14 and wheezing/Increased anxiety Review of Systems Sugical H&P ROS: Negative: Constitution, Cardiovascular, Respiratory and Gastrointestinal Exam Surgical H&P Exam: Normal: Heart, Normal: Lungs, Normal: Extremities and Normal: Abdomen Plan Diagnosis/Plan: Unchanged I have reviewed the history and physical and performed a pertinent physical examination on my patient. No changes have occurred unless specified. Time Spent With Patient Time: Total time managing care of this patient today ____ minutes.
--- NOTE | 2025-01-01 11:25 | P.CONAN_ITS ---
[facility] Active Problems Active Problems: All Active Problems (Updated 09/13/24 @ 14:17 by Lilian Calhoun RN) Nocturnal hypoxemia (Acute) Elevated fasting blood sugar (Acute) Asthma (Acute) Osteoarthritis of knees, bilateral (Acute) Bronchitis (Acute) Patellar bursitis of both knees (Acute) Insomnia (Acute) Bilateral knee pain (Acute) Colon cancer screening (Acute) Annual physical exam (Acute) Hypersomnia with sleep apnea (Acute) ADD (attention deficit disorder) (Acute) Obstructive sleep apnea (Acute) Lumbar spine pain (Acute) MDD (major depressive disorder), recurrent episode, moderate (Acute) Tracheobronchitis (Acute) Erectile dysfunction (Acute) Polyarthralgia (Acute) ALVAREZ (generalized anxiety disorder) (Acute) HLD (hyperlipidemia) (Acute) Hypogonadism (Acute) HTN (hypertension) (Acute) Hypogonadism male (Acute) Past Medical History Medical History Anxiety Depression ADD (attention deficit disorder) Sleep apnea Asthma Patellofemoral arthritis Acne rosacea Tachycardia Hypogonadism male Hypertension Polyarthralgia Functional capacity: independent ambulation Family History Family History Father Medical history unknown Mother Hypertension Surgical History Surgical History History of vasectomy Social History Social History Housing: House Alcohol intake: never Patient Tobacco Use Status: Former Tobacco user Tobacco use type: Cigarette e-Cigarette/Vaping Use: Never Used Second Hand Smoke Exposure: Yes Have you been hit, kicked, punched, or otherwise hurt by someone within the past year? 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 Current occupational exposures/hazards: No Cognitive needs: No Hearing needs: No Vision needs: No Meds Allergies Allergy/AdvReac Type Severity Reaction Status Date / Time propranolol Allergy Unknown Unknown Verified 11/09/24 08:14 RY Inhibitors AdvReac Intermediate cough Verified 11/09/24 08:14 amlodipine AdvReac Intermediate flushing Verified 11/09/24 08:14 bupropion (Wellbutrin) AdvReac Intermediate headaches/SOB Verified 11/09/24 08:14 and wheezing/Increased anxiety Active Medications: Current Medications Lactated Ringer's (Lr) 1,000 mls @ 50 mls/hr IVCONT .Q20H OLAYINKA Last Admin: 01/01/25 10:07 Dose: 50 mls/hr Exam Height,Weight and Vital Signs: Height 5 ft 9 in Weight 180 lb Last Vital Signs Temp 97.1 F 01/01/25 09:42 Pulse 96 01/01/25 09:42 Resp 20 01/01/25 09:42 BP 116/74 01/01/25 09:42 Pulse Ox 97 01/01/25 09:42 O2 Del Method Room Air 01/01/25 09:42 Airway Mallampati Class: IV TM Dist: >3cm Neck ROM: Full Loose/Missing/Broken Teeth: No Heart: RRR Lungs: CTA Assessment and Plan Assessment Anesthesia Assessment: Anesthesia Plan Discussed and Chart Reviewed Final Anesthetic Review ASA Class: III Final Preanesthetic Review: No Changes in Pt Med Stat, Meds/Allgs Chart Reviewed, Consent Obtained/Reviewed and Anes Risks/Benef Reviewed Anesthetic Plan Anesthetic Plan: TIVA Disposition: Standard PACU
--- NOTE | 2025-01-01 12:20 | P.OPN-COLO_ITS ---
Colonoscopy Operative Note Operative Note Date of Service: 01/01/25 Narrative: COLONOSCOPY TILL CECUM WITH BIOPSIES Pre-op diagnosis: Colon cancer screening (First colon). Post-op diagnosis:? Colon polyps, hemorrhoids Endoscopist:? Marco Klein MD Anesthesia:?MAC Consent: Indications for the procedure and potential complications of bleeding, perforation, reaction to medications and missed diagnosis were discussed with the patient and informed consent was obtained. Instrument: Olympus CF H 190 L variable stiffness adult colonoscope Monitoring: Vital signs and clinical assessment, intermittent blood pressure monitoring, continuous EKG monitoring, Pulse oximetry and Carbon Dioxide monitoring were done throughout the procedure. Please see anesthesia flowsheet. Colon withdrawl time was 25 minutes. Procedure: The patient was placed in the left lateral decubitis position and pre-procedure medications were administered. After a digital rectal examination of the ano-rectum, the video colonoscope was inserted into the rectum and advanced through the colon to the cecum. The colonoscope was slowly withdrawn in a retrograde panoramic fashion and the colon mucosa was carefully examined including a retroflexed view of the rectum. Findings and interventions are described below. Procedure Difficulty: without difficulty Findings: Terminal Ileum: Not evaluated Cecum: Normal Ascending Colon: Normal Transverse Colon: Normal Descending Colon: Normal Sigmoid Colon: Normal Rectum: A 3-4 mm diminutive appearing polyp - removed with a cold biopsy Ano-rectum: Moderate internal hemorrhoids Colon preparation: Good after copious irrigation. [place] Bowel Preparation Scale Right colon; 2 Transverse colon: 2 Left colon; 2 (0 = Unprepared colon segment with mucosa not seen due to solid stool that cannot be cleared. 1 = Portion of mucosa of the colon segment seen, but other areas of the colon se gment not well seen due to staining, residual stool and/or opaque liquid. 2 = Minor amount of residual staining, small fragments of stool and/or opaque liquid, but mucosa of colon segment seen well. 3 = Entire mucosa of colon segment seen well with no residual staining, small fragments of stool or opaque liquid) Impression and Post Procedure Diagnosis: Colonoscopy Findings: One small diminutive appearing polyp was removed Moderate hemorrhoids on retroflexed exam. Plan: I will send a letter with biopsy results. Repeat Colonoscopy in 5 years if polyps are adenomatous and 10 year if polyps are hyperplastic. Above findings were reviewed with the patient and relevant handouts were given and the discharge area.
[2025-01-01 12:25] VITALS: BP 102/61; PULSE 73; RESP 20; TEMP 36.2; O2SAT 94
[2025-01-01 12:42] VITALS: BP 119/84; PULSE 67; RESP 18; TEMP 36.2; O2SAT 96
== END 2025-01-01 12:53 | disposition home or self-care (01) ==
PROVIDERS: PCP Physician Assistant; Visit Provider Internal Medicine Gastroenterology
PROC: 0DJD8ZZ Inspection of Lower Intestinal Tract, Via Natural or Artificial Opening Endoscopic (ICD-10-PCS; CPT 45378; principal; 2025-01-01 11:00)
DX: Z12.11 Encounter for screening for malignant neoplasm of colon (principal); K62.1 Rectal polyp; K64.8 Other hemorrhoids; I10 Essential (primary) hypertension; E78.5 Hyperlipidemia, unspecified; J45.909 Unspecified asthma, uncomplicated; G47.33 Obstructive sleep apnea (adult) (pediatric); Z99.89 Dependence on other enabling machines and devices; Z87.891 Personal history of nicotine dependence; Z79.02 Long term (current) use of antithrombotics/antiplatelets; Z79.899 Other long term (current) drug therapy
CPT/HCPCS: 45380; 88305; J1100; J2003; J2250; J2405; J2704

== ENCOUNTER → 2025-01-01 09:02 | Outpatient (BNV) | payer OTHER, SELFPAY | PROVIDERS: PCP Physician Assistant; Visit Provider Internal Medicine Gastroenterology | DX: Z12.11 Encounter for screening for malignant neoplasm of colon (principal); D12.8 Benign neoplasm of rectum; K64.8 Other hemorrhoids | CPT/HCPCS: 45380 ==

== ENCOUNTER 2025-01-17 14:59 | Outpatient (AMB) | payer OTHER, SELFPAY ==
--- NOTE | 2025-01-17 15:02 | MHC.OFFVIS ---
Vital Signs 01/17/25 15:04 Height 5 ft 9 in Weight 180 lb BMI 26.6 Intake Visit Reasons: Inj-B/L knee injection-last 05/31/24 Intake Note: Brian is a 49 year old male who presents today for a follow up for B/L knee injection, last injection 05/31/24. At last visit on 05/31/24 we fitted him for a new knee braces. Patient reports no changes since last visit, injections did give mild relief. Allergies propranolol Allergy (Unknown, Verified 01/17/25 15:03) Unknown RY Inhibitors Adverse Reaction (Intermediate, Verified 01/17/25 15:03) cough amlodipine Adverse Reaction (Intermediate, Verified 01/17/25 15:03) flushing bupropion (Wellbutrin) Adverse Reaction (Intermediate, Verified 01/17/25 15:03) headaches/SOB and wheezing/Increased anxiety HPI HPI Inj-B/L knee injection-last 05/31/24: Details: 49 yo male returns to the office today bilat knee pain s/p injections. He states the injections are helpful but after working all day there is more pain. 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 Tenderness along the medial and lateral joint line. Full ROM with crepitus. Negative Laurent?s. No ligamentous laxity. NVI. Office Procedures AMB Joint Injection/Aspiration Joint Injection/Aspiration Primary Site: right knee Secondary Site: left knee Prep: site was prepped using aseptic technique, ethochloride spray was applied and injection warnings given Injected: 80 mg of, DepoMedrol, with 8 mL of, 1% plain lidocaine and in the joint Approach Used: anterolateral Procedure: The patient tolerated the procedure well and there was some relief with the local anesthesia Coding 02246 - Glenohumeral/Tronchanteric Bursa/Intraarticular Procedure code (CPT) selection complete Assessment & Plan Assessment & Plan (1) Osteoarthritis of knees, bilateral: Code(s): M17.0 - Bilateral primary osteoarthritis of knee Category: Medical Qualifiers: Osteoarthritis type: primary Qualified Code(s): M17.0 - Bilateral primary osteoarthritis of knee Plan: We discussed options today, which include steroid injection. The patient did consent to move forward with the injection, which was tolerated well.? I recommended rest, ice and elevation and OTC antiinflammatories prn for discomfort. If symptoms persist over the next 6-8 weeks, they will contact our office, otherwise, prn He was also fit for a new knee braces in the office today Coding Level of Care Code Est Pt Level 3 (75129) Complex EM visit Add On G2211 Diagnoses Primary osteoarthritis of both knees M17.0 Osteoarthritis type: primary CPT Codes Coding - Joint 7: 23612 - Glenohumeral/Tronchanteric Bursa/Intraarticular ([id number])
[2025-01-17 15:04] VITALS: BMI 26.6
== END 2025-01-17 15:31 | disposition home or self-care (01) ==
LOC: HO.HOS 15:00
PROVIDERS: PCP Physician Assistant; Visit Provider Physician Assistant
DX: M17.0 Bilateral primary osteoarthritis of knee (principal)
CPT/HCPCS: 20610; 99213

== ENCOUNTER → 2025-01-17 14:59 | Outpatient (BNVA) | payer OTHER, SELFPAY | PROVIDERS: PCP Physician Assistant; Visit Provider Physician Assistant | DX: M17.0 Bilateral primary osteoarthritis of knee (principal) | CPT/HCPCS: 20610; J1010; J2003 ==

== ENCOUNTER 2025-05-17 15:24 | Outpatient (AMB) | payer OTHER, SELFPAY ==
[2025-05-17 15:30] VITALS: BP 170/100; PULSE 107; O2SAT 98; BMI 28.2
--- NOTE | 2025-05-17 15:30 | A.OFFVIS_ITS ---
Vital Signs 05/17/25 15:30 Height 5 ft 9 in Weight 191 lb BMI 28.2 BP 170/100 H Blood Pressure Location Lt brachial Position Sitting Pulse 107 H Pulse Source Pulse Oximeter Pulse Oximetry (%) 98 Oxygen Delivery Method Room Air Intake Visit Reasons: 6 mnts f/u- (Confirmed) Operation Agent Required: No Accompanied by: Self / Same As Patient Allergies propranolol Allergy (Unknown, Verified 05/17/25 15:34) Unknown RY Inhibitors Adverse Reaction (Intermediate, Verified 05/17/25 15:34) cough amlodipine Adverse Reaction (Intermediate, Verified 05/17/25 15:34) flushing bupropion (Wellbutrin) Adverse Reaction (Intermediate, Verified 05/17/25 15:34) headaches/SOB and wheezing/Increased anxiety Medication List - Last Reconciled 05/17/25 by SHANEKA Reno albuterol sulfate 90 mcg/actuation (Ventolin HFA) 1 inh inhalation QID PRN 30 days atorvastatin 20 mg PO DAILY 90 days blood pressure test kit-large As directed cholecalciferol (vitamin D3) 50 mcg PO DAILY 90 days clonazepam 1 mg PO BID 30 days dextroamphetamine-amphetamine 10 mg (Adderall) 10 mg PO TID 30 days diclofenac sodium 75 mg PO BID PRN 15 days hydrochlorothiazide 25 mg PO QAM leg brace (Knee Support Brace) Spider knee pad ( bilat knee ) losartan 100 mg PO DAILY magnesium oxide 400 mg PO BEDTIME 30 days naloxone 4 mg/actuation (Narcan) 4 mg intranasal Q2M PRN 30 days oxycodone 5 mg PO Q8H 7 days safety needles (BD Eclipse Luer-Santino) once a week sildenafil 100 mg PO DAILY PRN 4 days solriamfetol (Sunosi) 75 mg PO DAILY 30 days testosterone cypionate 40 mg (0.4 mL) IM QWEEK 30 days zolpidem ER 12.5 mg PO BEDTIME PRN 30 days HPI Comments Details: 50-yr-old male presents for f/u visit for sleep. Pt denies any significant interval medical changes. Pt has seen nephrology- states he still has not had the 24 hr BP monitor yet, as he has not heard from nephrology. He states they were going to try to find a monitor that he could use while working. However, he states his blood pressure has been better controlled. Today, his BP is 170/100, however he denies any current cardiac symptoms. Feels this is white coat syndrome. He states states that he is still going through his divorce, but surprisingly he feels that he is sleeping better. He has stopped needing to take melatonin or any clonazepam. Though, he still relies on Ambien for sleep. He is still using his CPAP with good effect. He states that he can still have some poor focus and poor energy, especially in the afternoon. He has not noticed much reduction in the symptoms since starting Sunosi in addition to Adderall IR 10 mg TID. He did recently hold his stenoses, and trial a left over Adderall ER 30 mg, and felt better on this. He noted that he did not have any bothersome activating or kicking in symptoms. 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 Current occupational exposures/hazards: No Cognitive needs: No Hearing needs: No Vision needs: No Physical Exam Vital Signs: Last Vital Signs Pulse 107 H 05/17/25 15:30 BP 170/100 H 05/17/25 15:30 Pulse Ox 98 05/17/25 15:30 Oxygen Delivery Method Room Air 05/17/25 15:30 BMI result Body Mass Index 28.2 Const General: cooperative and no acute distress Orientation/consciousness: patient oriented x3 Resp Effort & Inspection: normal respiratory effort and able to speak in complete sentences Neuro General: patient oriented x3, gait normal and CN's II-XI intact bilaterally Cognition (Neuro): normal cognition Motor exam (neuro): 5/5 motor strength present throughout Psych Appearance: grossly normal Mental Status: mental status grossly normal Speech and movement: Normal speech and movement present Affect: normal affect Attitude: cooperative Thought process: Normal thought process present Assessment & Plan Assessment & Plan (1) Hypersomnia with sleep apnea: Code(s): G47.10 - Hypersomnia, unspecified; G47.30 - Sleep apnea, unspecified Category: Medical (2) Obstructive sleep apnea: Comment: severe. AHI 26.4/hr w/ O2 perry 79% Code(s): G47.33 - Obstructive sleep apnea (adult) (pediatric) Category: Medical (3) ADD (attention deficit disorder): Code(s): F98.8 - Other specified behavioral and emotional disorders with onset usually occurring in childhood and adolescence Category: Medical Qualifiers: Hyperactivity presence: absent Qualified Code(s): F98.8 - Other specified behavioral and emotional disorders with onset usually occurring in childhood and adolescence Plan For sleep promotion: Continue APAP 8-16 cm H2O w/ EPR 2. Clean and change CPAP supplies routinely. Use distilled water in CPAP water reservoir. Continue zolpidem ER 12.5 mg p.o. q.h.s. Previous trials: Amitriptyline 10 mg-not tolerated. Mirtazapine 7.5-22.5 mg-at lower dose ineffective for sleep, at higher dose patient felt caused HLD. For residual hypersomnia despite therapeutic CPAP usage: Reviewed overnight pulse oximetry study- Pap therapy is effectively controlling nocturnal hypoxemia. Continue Adderall IR 10mg tid Discontinue Sunosi 75 mg daily order, as this has not been very effective. Restart Adderall ER 30 mg daily Previous trials- Modafinil 200mg- caused CABA. Wellbutrin- caused worsening of facial redness. Adderall ER- not well tolerated. f/u in 4-6 months or sooner prn. Medications: Refilled dextroamphetamine-amphetamine 30 mg ER (Adderall XR) Partial Fill upon patient request. 30 mg PO QAM 30 caps 0RF 30 days Discontinued solriamfetol (Sunosi) Discontinued Reason: Doctor's Order 75 mg PO DAILY 30 days 30 tabs 3RF Coding Level of Care Code Est Pt Level 4 (73304) Diagnoses Hypersomnia with sleep apnea G47.10; G47.30 Obstructive sleep apnea G47.33 Attention deficit disorder (ADD) without hyperactivity F98.8 Hyperactivity presence: absent
== END 2025-05-17 16:27 | disposition home or self-care (01) ==
LOC: HO.HSMS 15:25
PROVIDERS: PCP Physician Assistant; Visit Provider Nurse Practitioner Family
DX: G47.10 Hypersomnia, unspecified (principal); G47.30 Sleep apnea, unspecified; G47.33 Obstructive sleep apnea (adult) (pediatric); F98.8 Other specified behavioral and emotional disorders with onset usually occurring in childhood and adolescence
CPT/HCPCS: 99214